=== PATIENT | female | born 1930 | race Two or more races ===

== ENCOUNTER 2018-09-24 11:08 | Inpatient (IN) | payer MEDICARE ==
[~2018-09-24] VITALS: Ht 157.5 cm; Wt 64.4 kg
[2018-09-24 11:18] VITALS: BP 194/65
--- NOTE | 2018-09-24 11:22 | NUR ---
ED Nurse Note: pt brought in to ER by ambulance from [facility] due to high blood pressure which is 194/65mmHg currently and general weakness. pt aao x4 in Latvian and ambulatory with FWW. skin clean and intact. calm and cooperative. no vomiting since she arrived. pt is in gown and on engine monitor.
[2018-09-24] MEDS ORDERED: Isovue-300 100ml vial INJ PRN (11:30)
[2018-09-24 12:05] LABS: BASOPHILS % (AUTO) 0.6 % (0.0-2.0); EOSINOPHILS % (AUTO) 0.2 % (0.0-3.0); HEMATOCRIT 36.2 % (37.0-47.0); HEMOGLOBIN 11.6 G/DL (12.0-16.0); LYMPHOCYTES % (AUTO) 9.8 % (20.0-45.0); MEAN CORPUSCULAR VOLUME 94 FL (80-99); MONOCYTES % (AUTO) 5.4 % (1.0-10.0); PLATELET COUNT 232 K/UL (150-450); RED BLOOD COUNT 3.85 M/UL (4.20-5.40); RED CELL DISTRIBUTION WIDTH 12.9 % (11.6-14.8)
[2018-09-24 12:16] LABS: ANION GAP 10 mmol/L (5-15); BLOOD UREA NITROGEN 18 mg/dL (7-18); CALCIUM 8.9 MG/DL (8.5-10.1); CARBON DIOXIDE 27 MMOL/L (21-32); CHLORIDE 102 MMOL/L (98-107); CREATININE 0.9 MG/DL (0.55-1.30); POTASSIUM 4.3 MMOL/L (3.5-5.1); SODIUM 139 MMOL/L (136-145)
[2018-09-24 12:20] LABS: ALANINE AMINOTRANSFERASE 21 U/L (12-78); ALBUMIN 3.5 G/DL (3.4-5.0); ALBUMIN/GLOBULIN RATIO 0.8 (1.0-2.7); ALKALINE PHOSPHATASE 88 U/L (46-116); ASPARTATE AMINO TRANSFERASE 17 U/L (15-37); BILIRUBIN,TOTAL 0.4 MG/DL (0.2-1.0)
--- NOTE | 2018-09-24 12:55 | NUR ---
ED Nurse Note: PT WENT TO CT WITH TECH
[2018-09-24 12:58] LABS: APPEARANCE,URINE SLIGHTLY CLOUDY; BILIRUBIN, URINE NEGATIVE (NEGATIVE); GLUCOSE, URINE (UA) NEGATIVE (NEGATIVE); KETONES,URINE NEGATIVE (NEGATIVE); LEUKOCYTE ESTERASE ,URINE 3+ (NEGATIVE); NITRITE,URINE NEGATIVE (NEGATIVE); PH,URINE 7 (4.5-8.0); PROTEIN,URINE 2+ (NEGATIVE); UROBILINOGEN,URINE NORMAL MG/DL (0.0-1.0)
[2018-09-24 13:00] LABS: COLOR,URINE YELLOW
[2018-09-24 13:19] VITALS: BP 178/50
--- NOTE | 2018-09-24 13:24 | NUR ---
ED Nurse Note: pt came back from CT scan in stable condition.
--- NOTE | 2018-09-24 13:38 | NUR ---
ED Nurse Note: BP 193/57mmHg. reported to ERMD.
--- NOTE | 2018-09-24 13:39 | NUR ---
ED Nurse Note: pt left unit with 1 botany technician in stable condition.
--- NOTE | 2018-09-24 13:55 | NUR ---
ED Nurse Note: family at bedside. ERMD at bedside informing pt and family about admitting plan.
--- NOTE | 2018-09-24 13:56 | Diagnostic Imaging Report ---
Clinical Indication: Abdominal pain Technique: No oral contrast utilized, per emergency room physician request IV administration nonionic contrast. Venous phase spiral acquisition obtained through the abdomen and pelvis. Multiplanar reconstructions were generated. Total dose length product 819.33 mGycm. CTDIvol(s) 17.73 mGy. Dose reduction achieved using automated exposure control Comparison: none Findings: Lack of enteric contrast administration limits assessment of the GI tract. The appendix is normal. There is colonic diverticulosis. No evidence of diverticulitis. No small bowel distention. No free or loculated intraperitoneal gas or fluid is evident. There is a small sliding-type hiatal hernia. The stomach and distal esophagus are otherwise unremarkable. Duodenum is unremarkable. The gallbladder contains gallstones. The liver is unremarkable. No biliary ductal dilatation. The pancreas is somewhat atrophic and fatty replaced. The spleen, adrenals are unremarkable. There is mild bilateral hydronephrosis. The ureters are somewhat ectatic as well, but no downstream obstructive lesion is demonstrated. The bladder is mildly distended. A subcentimeter angiomyolipoma is seen in the right kidney. Both kidneys demonstrate subcentimeter low-attenuation lesions which are too small to characterize but most likely represent benign simple cysts. There is evidence of some cortical scarring on the left kidney. Calcifications in the left renal sinus are probably arterial. There is an area of haziness of the perinephric fat superomedial to the upper pole of the right kidney The uterus is surgically absent. No pelvic mass or adenopathy. No retroperitoneal or mesenteric mass or adenopathy. The heart is mildly enlarged. The included lung bases demonstrate some atelectatic changes and/or scarring. There is thoracolumbar scoliotic deformity. There are degenerative changes of the lumbosacral spine. Impression: Bilateral mild hydronephrosis. Etiology uncertain given lack of evidence of downstream obstructive pathology. Limited assessment of the GI tract, due to lack of enteric contrast administration. No definite acute abnormality of the GI tract Colonic diverticulosis. No evidence of diverticulitis. 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 Other subcentimeter low-attenuation renal lesions are too small to characterize, most likely represent benign cortical cysts. No further follow-up necessary. Other findings as noted, including degenerative lumbosacral spondylosis, thoracolumbar scoliotic deformity, basilar pulmonary parenchymal atelectasis and/or scarring, evidence of prior hysterectomy, pancreatic atrophy, small sliding-type hiatal hernia The CT scanner at [facility] is accredited by the [employer] and the scans are performed using protocols designed to limit radiation exposure to as low as reasonably achievable to attain images of sufficient resolution adequate for diagnostic evaluation.
--- NOTE | 2018-09-24 14:23 | NUR ---
ED Nurse Note: sandwich and juice provided per pt's request.
[2018-09-24] MEDS ORDERED: NKM (14:24)
--- NOTE | 2018-09-24 14:27 | Emergency Room Report ---
History of Present Illness General Chief Complaint: Generalized Weakness Source: Patient, Family Member, Medical Record Present Illness HPI Patient presents emergency department today complaint acute onset of nausea vomiting associate abdominal discomfort. Patient was a senior daycare where she began to feel ill. And she was brought here by EMS for further evaluations. Patient denies any chest pain. Denies any shortness of breath. No other complaints are noted. Symptoms noted to be severe. Patient states that she had normal bowel movements denies any rectal bleeding. Symptoms however noted to be severe and patient usually does not vomit or have back pain. No other modifying factors. No other associated signs and symptoms. No other complaints were noted. Allergies: Coded Allergies: No Known Allergies (Unverified , 09/24/18) Patient History Past Medical History: DM, HTN, other - Hyperlipidemia PMH Narrative Gastritis, constipation, diverticulosis Social History: Denies: smoking, alcohol use, drug use Now: No Reviewed Nursing Documentation: PMH: Agreed; PSxH: Agreed Nursing Documentation-PMH Past Medical History: No History, Except For Hx Cardiac Problems: Yes - Hyperlipidemia Hx Hypertension: Yes - Lumbar stenosis Hx Diabetes: Yes - Type 2 Hx Gastrointestinal Problems: Yes - Gastritis, chronic constipation, diverticulosis Review of Systems All Other Systems: negative except mentioned in HPI Physical Exam Vital Signs Date Time Temp Pulse Resp B/P (MAP) Pulse Ox O2 Delivery O2 Flow Rate FiO2 09/24/18 11:05 100.0 75 20 202/75 (117) 99 Room Air Sp02 EP Interpretation: reviewed, normal General Appearance: alert, other - Appears weak Head: atraumatic Eyes: bilateral eye normal inspection ENT: normal ENT inspection, hearing grossly normal, normal voice Neck: normal inspection, full range of motion, supple, no bony tend Respiratory: normal inspection, lungs clear, normal breath sounds, no respiratory distress, no retraction, no wheezing Cardiovascular #1: regular rate, rhythm, no edema Gastrointestinal: normal inspection, normal bowel sounds, non tender, soft, no guarding, no hernia Genitourinary: no CVA tenderness Musculoskeletal: normal inspection, back normal, normal range of motion Neurologic: normal inspection, alert, responsive, speech normal Psychiatric: normal inspection, judgement/insight normal, mood/affect normal Medical Decision Making Diagnostic Impression: Primary Impression: Abdominal pain Additional Impressions: Dehydration Hydronephrosis Hematuria Vomiting Hypertension ER Course Patient presents emergency department today complaining abdominal pain. Patient presents to the emergency department today complaining of abdominal pain. Differential considerations include acute pancreatitis, cholecystitis, gastritis, hepatitis, appendicitis just to name a few. Given the severity of the patient's presentation I felt this is a highly complex patient. This patient required extensive workup. Patient's laboratory work-up shows evidence hematuria. Because patient's symptoms CT scan was performed. CT scan shows bilateral hydronephrosis. Given patient abnormality hematuria abdominal pain hydronephrosis and advanced age I feel the patient require admission for the treatment. Case was discussed in detail with Dr. Janell Delacruz. Patient will be admitted for hydration pain management as well as work-up of the hydronephrosis and hematuria. Labs Test 09/24/18 11:30 09/24/18 12:10 White Blood Count 8.0 K/UL (4.8-10.8) Red Blood Count 3.85 M/UL (4.20-5.40) Hemoglobin 11.6 G/DL (12.0-16.0) Hematocrit 36.2 % (37.0-47.0) Mean Corpuscular Volume 94 FL (80-99) Mean Corpuscular Hemoglobin 30.2 PG (27.0-31.0) Mean Corpuscular Hemoglobin Concent 32.1 G/DL (32.0-36.0) Red Cell Distribution Width 12.9 % (11.6-14.8) Platelet Count 232 K/UL (150-450) Mean Platelet Volume 7.6 FL (6.5-10.1) Neutrophils (%) (Auto) 84.0 % (45.0-75.0) Lymphocytes (%) (Auto) 9.8 % (20.0-45.0) Monocytes (%) (Auto) 5.4 % (1.0-10.0) Eosinophils (%) (Auto) 0.2 % (0.0-3.0) Basophils (%) (Auto) 0.6 % (0.0-2.0) Sodium Level 139 MMOL/L (136-145) Potassium Level 4.3 MMOL/L (3.5-5.1) Chloride Level 102 MMOL/L (98-107) Carbon Dioxide Level 27 MMOL/L (21-32) Anion Gap 10 mmol/L (5-15) Blood Urea Nitrogen 18 mg/dL (7-18) Creatinine 0.9 MG/DL (0.55-1.30) Estimat Glomerular Filtration Rate mL/min (>60) Glucose Level 221 MG/DL (74-106) Calcium Level 8.9 MG/DL (8.5-10.1) Total Bilirubin 0.4 MG/DL (0.2-1.0) Aspartate Amino Transf (AST/SGOT) 17 U/L (15-37) Alanine Aminotransferase (ALT/SGPT) 21 U/L (12-78) Alkaline Phosphatase 88 U/L (46-116) Troponin I 0.000 ng/mL (0.000-0.056) Total Protein 8.0 G/DL (6.4-8.2) Albumin 3.5 G/DL (3.4-5.0) Globulin 4.5 g/dL Albumin/Globulin Ratio 0.8 (1.0-2.7) Lipase 70 U/L (73-393) Urine Color Yellow Urine Appearance Slightly cloudy Urine pH 7 (4.5-8.0) Urine Specific Novice 1.015 (1.005-1.035) Urine Protein 2+ (NEGATIVE) Urine Glucose (UA) Negative (NEGATIVE) Urine Ketones Negative (NEGATIVE) Urine Blood 1+ (NEGATIVE) Urine Nitrite Negative (NEGATIVE) Urine Bilirubin Negative (NEGATIVE) Urine Urobilinogen Normal MG/DL (0.0-1.0) Urine Leukocyte Esterase 3+ (NEGATIVE) Urine RBC 20-30 /HPF (0 - 2) Urine WBC 5-10 /HPF (0 - 2) Urine Squamous Epithelial Cells Many /LPF (NONE/OCC) Urine Bacteria Moderate /HPF (NONE) CT/MRI/US Diagnostic Results CT/MRI/US Diagnostic Results : Imaging Test Ordered: CT and pelvis: Positive for hydronephrosis per radiology. Last Vital Signs Date Time Temp Pulse Resp B/P (MAP) Pulse Ox O2 Delivery O2 Flow Rate FiO2 09/24/18 13:19 98.1 69 20 178/50 96 Room Air Status: improved Disposition: ADMITTED INPATIENT Condition: Serious Referrals: NOT CHOSEN IPA/,REFERRING (PCP) Gianfranco Neville MD Sep 24, 2018 14:27
--- NOTE | 2018-09-24 14:33 | NUR ---
ED Nurse Note: report given to JENNY Palmer.
--- NOTE | 2018-09-24 14:56 | NUR ---
NURSE NOTES: Pt BP elevated on arrival to the floor; 163/94. RN left message for Dr. Ballesteros re BP and for admit orders. Awaiting call back.
--- NOTE | 2018-09-24 15:34 | NUR ---
NURSE NOTES: RN received admit orders from Dr. Ballesteros and advised to contact Dr. Myers re elevated BP. RN left message for Dr. Myers. Awaiting call back. Charge nurse aware.
[2018-09-24 16:00] VITALS: BP 162/79
[2018-09-24 16:30] VITALS: BP 155/61
[2018-09-24] MEDS ORDERED: NovoLOG Insulin Flexpen SUBQ SCH (16:30)
--- NOTE | 2018-09-24 16:30 | NUR ---
NURSE NOTES: Per Dr. Myers's order, pt transferred to tele. Pt BP elevated, but otherwise in stable condition. No acute distress or SOB. RN gave report to JENNY Brock. Informed television parts tester that pt's family would call with home med list and to f/u with Dr. Ballesteros for home med orders. Pt's walker, sunglasses and cell phone accounted for during transport; all other belongings sent home with family.
--- NOTE | 2018-09-24 16:32 | NUR ---
NURSE NOTES: Received patient and report from Scarlett ALVARADO. from 4E into rm 220-1. Patient is alert and oriented x4. Skin is intact. All belongings accounted for and signed with the transferring nurse. Patient is NPO per Dr. Badillo. Spoke with Lorelei - daughter and dictated the list of patient's medications over the phone. All home medications input. Blood pressure checked 155/61. Patient is in stable condition. Will continue with the plan of care.
[2018-09-24] MEDS: HydrALAZINE 25mg tab ORAL SCH (17:11)
--- NOTE | 2018-09-24 17:32 | NUR ---
CASE MANAGEMENT:INITIAL REVIEW 88 YO F BIBA FROM [facility] CC: GEN WEAKNESS PMHx: DM. HTN. HLD. SI:ABD PAIN T 100 HR 75 RR 20 B/P 202/75 SATS 99% ON RA GLU 221 LIPASE 70 IS: ZOFRAN IV X1 NS BOLUS X1 CT ABD Impression: Bilateral mild hydronephrosis PATIENT ADMITTED TO TELE 09/24/2018 @ 1304 DCP: PATIENT TO BE DISCHARGED TO HOME ONCE MEDICALLY CLEARED.
[2018-09-24] MEDS ORDERED: HydrALAZINE 25mg tab ORAL SCH (18:00)
[2018-09-24] MEDS ORDERED: METFORMIN HCL1000 M1 ORAL (18:01)
[2018-09-24] MEDS ORDERED: GLIMEPIRIDE1 MG ORAL (18:03)
[2018-09-24] MEDS ORDERED: GABAPENTIN300 MG ORAL (18:04)
[2018-09-24] MEDS ORDERED: AMLODIPINE BESY10 MG ORAL (18:05)
[2018-09-24] MEDS ORDERED: CARVEDILOL25 MG ORAL (18:06)
[2018-09-24] MEDS ORDERED: FEROSUL325 M1 PO (18:07)
[2018-09-24] MEDS ORDERED: TRAVATAN Z5 ML OP (18:09)
[2018-09-24] MEDS ORDERED: LOSARTAN POTASS50 MG ORAL (18:14)
[2018-09-24] MEDS ORDERED: MINOXIDIL2.5 MG PO (18:14)
[2018-09-24] MEDS ORDERED: HYDROCHLOROTH12.5 M2 ORAL (18:14)
[2018-09-24] MEDS ORDERED: OMEPRAZOLE20 M2 ORAL (18:14)
--- NOTE | 2018-09-24 19:33 | NUR ---
HAND-OFF: Report given to Gina ALVARADO.Patient is in stable condition.
[2018-09-24 20:00] VITALS: BP 166/69
[2018-09-24] MEDS: NovoLOG Insulin Flexpen SUBQ SCH (21:00)
[2018-09-25] VITALS: BP 112/66
[2018-09-25 04:00] VITALS: BP 103/90
[2018-09-25] MEDS: HydrALAZINE 25mg tab ORAL SCH ×2 (05:51)
[2018-09-25] MEDS: NovoLOG Insulin Flexpen SUBQ SCH ×4 (06:25→23:01)
--- NOTE | 2018-09-25 07:22 | NUR ---
NURSE NOTES: Received patient from Gina RN in bed resting. Patient is AOx4. Denies any pain. No acute distress noted, fall precaution in place. Bed is in lowest position and brakes engaged for safety. Bedside rail up x2, call light is within reach. Will continue with the plan of care.
[2018-09-25 08:00] VITALS: BP 121/67
[2018-09-25 08:49] LABS: BASOPHILS % (AUTO) 0.6 % (0.0-2.0); EOSINOPHILS % (AUTO) 1.8 % (0.0-3.0); HEMATOCRIT 34.3 % (37.0-47.0); HEMOGLOBIN 11.1 G/DL (12.0-16.0); LYMPHOCYTES % (AUTO) 18.4 % (20.0-45.0); MEAN CORPUSCULAR VOLUME 93 FL (80-99); MONOCYTES % (AUTO) 6.7 % (1.0-10.0); NEUTROPHILS % (AUTO) 72.4 % (45.0-75.0); PLATELET COUNT 198 K/UL (150-450); RED BLOOD COUNT 3.69 M/UL (4.20-5.40); RED CELL DISTRIBUTION WIDTH 12.4 % (11.6-14.8); WHITE BLOOD COUNT 9.5 K/UL (4.8-10.8)
[2018-09-25 09:37] LABS: % IRON SATURATION 15 % (15-50); IRON 39 ug/dL (50-175); TOTAL IRON BINDING CAPACITY 256 ug/dL (250-450)
[2018-09-25 09:38] LABS: ALANINE AMINOTRANSFERASE 18 U/L (12-78); ALBUMIN 3.3 G/DL (3.4-5.0); ALBUMIN/GLOBULIN RATIO 0.9 (1.0-2.7); ALKALINE PHOSPHATASE 77 U/L (46-116); ANION GAP 7 mmol/L (5-15); ASPARTATE AMINO TRANSFERASE 17 U/L (15-37); BILIRUBIN,TOTAL 0.5 MG/DL (0.2-1.0); BLOOD UREA NITROGEN 14 mg/dL (7-18); CALCIUM 8.7 MG/DL (8.5-10.1); CARBON DIOXIDE 29 MMOL/L (21-32); CHLORIDE 104 MMOL/L (98-107); CHOLESTEROL 204 MG/DL (< 200); CREATININE 0.9 MG/DL (0.55-1.30); FERRITIN 74 NG/ML (8-388); HDL CHOLESTEROL 46 MG/DL (40-60); POTASSIUM 3.9 MMOL/L (3.5-5.1); SODIUM 139 MMOL/L (136-145); TRIGLYCERIDES 59 MG/DL (30-150)
[2018-09-25 10:11] LABS: GAMMA GLUTAMYL TRANSPEPTIDASE 39 U/L (5-85); PHOSPHORUS 3.6 MG/DL (2.5-4.9)
[2018-09-25] MEDS ORDERED: Isovue-300 100ml vial INJ PRN (11:30)
[2018-09-25] MEDS: HydrALAZINE 10mg Tab ORAL SCH ×3 (11:57→23:07)
[2018-09-25 12:00] VITALS: BP 132/60
--- NOTE | 2018-09-25 13:43 | Consultation ---
Consult Note Consult Note asked to alexia for BP management ER: Patient presents emergency department today complaint acute onset of nausea vomiting associate abdominal discomfort. Patient was a senior daycare where she began to feel ill. And she was brought here by EMS for further evaluations. Patient denies any chest pain. Denies any shortness of breath. No other complaints are noted. Symptoms noted to be severe. Patient states that she had normal bowel movements denies any rectal bleeding. Symptoms however noted to be severe and patient usually does not vomit or have back pain. No other modifying factors. No other associated signs and symptoms. No other complaints were noted. No Known Allergies (Unverified , 09/24/18) Past Medical History: DM, HTN, other - Hyperlipidemia Past Medical History: No History, Except For Hx Cardiac Problems: Yes - Hyperlipidemia Hx Hypertension: Yes - Lumbar stenosis Hx Diabetes: Yes - Type 2 Hx Gastrointestinal Problems: Yes - Gastritis, chronic constipation, diverticulosis examined data reviewed . Assessment/Plan HTN OOC DM, elevated HgbA1c Abdominal pain and Vomiting: Now improved UTI , Hematuria Dehydration Hydronephrosis BP meds with Parameters Antibiotics for uti NPO pending GI Conor Davila MD Sep 25, 2018 13:43
--- NOTE | 2018-09-25 14:44 | NUR ---
CASE MANAGEMENT:REVIEW 09/25/18 SI: DEHYDRATION. HYDRONEPHROSIS 98.2 66 18 132/60 95% ON RA GLUCOSE+150 A1C+7.2 IS: NORVASC PO BID IV ROCEPHIN Q24 IVF@50/HR HYDRALAZINE PO Q6HRS IV PEPCID Q12 : MED/SURG STATUS 3 EAST DCP: FROM HOME
[2018-09-25] MEDS ORDERED: cefTRIAXone 1 GM in D5W 55 ML IVPB SCH (15:00)
[2018-09-25 16:00] VITALS: BP 134/77
--- NOTE | 2018-09-25 16:26 | Consultation ---
History of Present Illness General Chief Complaint: Generalized Weakness Present Illness Allergies: Coded Allergies: No Known Allergies (Unverified , 09/24/18) Medication History Scheduled Amlodipine Besylate* (Amlodipine Besylate*), 10 MG ORAL DAILY, (Reported) Carvedilol* (Carvedilol*), 25 MG ORAL BID, (Reported) Ferrous Sulfate (Ferosul), 325 MG PO DAILY, (Reported) Gabapentin* (Gabapentin*), 300 MG ORAL BID, (Reported) Glimepiride* (Glimepiride*), 1 MG ORAL DAILY, (Reported) Hydrochlorothiazide* (Hydrochlorothiazide*), 12.5 MG ORAL DAILY, (Reported) Losartan Potassium* (Losartan Potassium*), 100 MG ORAL DAILY, (Reported) Metformin Hcl* (Metformin Hcl*), 1,000 MG ORAL BID, (Reported) Minoxidil* (Loniten*), 5 MG PO BID, (Reported) Omeprazole (Omeprazole), 20 MG ORAL DAILY, (Reported) Miscellaneous Medications Travoprost (Travatan Z), Unknown Dose OP, (Reported) Discontinued Medications No Known Medications* (NKM - No Known Medications*), 0 ., (Reported) Discontinued Reason: Therapy completed Patient History Healthcare decision maker Resuscitation status Full Code Advanced Directive on File Physical Exam Last 24 Hour Vital Signs Date Time Temp Pulse Resp B/P (MAP) Pulse Ox O2 Delivery O2 Flow Rate FiO2 09/25/18 12:00 98.2 66 18 132/60 (84) 95 09/25/18 12:00 66 09/25/18 11:57 132/50 09/25/18 09:04 68 121/67 09/25/18 09:00 Room Air 09/25/18 08:00 97.0 64 18 121/67 (85) 97 09/25/18 08:00 64 09/25/18 05:51 103/90 09/25/18 04:00 98.0 90 19 103/90 (94) 96 09/25/18 04:00 63 09/25/18 00:00 61 09/25/18 00:00 112/66 09/25/18 00:00 98.0 71 18 112/66 (81) 96 09/24/18 21:00 Room Air 09/24/18 20:00 97.9 71 18 166/69 (101) 96 09/24/18 20:00 61 09/24/18 17:14 60 155/61 09/24/18 17:11 155/61 09/24/18 16:30 61 09/24/18 16:30 97.3 60 20 155/61 (92) 96 09/24/18 16:21 Room Air Intake and Output 09/24/18 09/25/18 19:00 07:00 Intake Total 550 ml Balance 550 ml Intake Oral 50 ml IV Total 500 ml Laboratory Tests Test 09/25/18 06:15 White Blood Count 9.5 K/UL (4.8-10.8) Red Blood Count 3.69 M/UL (4.20-5.40) L Hemoglobin 11.1 G/DL (12.0-16.0) L Hematocrit 34.3 % (37.0-47.0) L Mean Corpuscular Volume 93 FL (80-99) Mean Corpuscular Hemoglobin 30.1 PG (27.0-31.0) Mean Corpuscular Hemoglobin Concent 32.5 G/DL (32.0-36.0) Red Cell Distribution Width 12.4 % (11.6-14.8) Platelet Count 198 K/UL (150-450) Mean Platelet Volume 7.3 FL (6.5-10.1) Neutrophils (%) (Auto) 72.4 % (45.0-75.0) Lymphocytes (%) (Auto) 18.4 % (20.0-45.0) L Monocytes (%) (Auto) 6.7 % (1.0-10.0) Eosinophils (%) (Auto) 1.8 % (0.0-3.0) Basophils (%) (Auto) 0.6 % (0.0-2.0) Sodium Level 139 MMOL/L (136-145) Potassium Level 3.9 MMOL/L (3.5-5.1) Chloride Level 104 MMOL/L (98-107) Carbon Dioxide Level 29 MMOL/L (21-32) Anion Gap 7 mmol/L (5-15) Blood Urea Nitrogen 14 mg/dL (7-18) Creatinine 0.9 MG/DL (0.55-1.30) Estimat Glomerular Filtration Rate mL/min (>60) Glucose Level 150 MG/DL (74-106) H Hemoglobin A1c 7.2 % (4.3-6.0) H Uric Acid 5.1 MG/DL (2.6-7.2) Calcium Level 8.7 MG/DL (8.5-10.1) Phosphorus Level 3.6 MG/DL (2.5-4.9) Magnesium Level 2.3 MG/DL (1.8-2.4) Iron Level 39 ug/dL (50-175) L Total Iron Binding Capacity 256 ug/dL (250-450) Percent Iron Saturation 15 % (15-50) Unsaturated Iron Binding 217 ug/dL (112-346) Ferritin 74 NG/ML (8-388) Total Bilirubin 0.5 MG/DL (0.2-1.0) Gamma Glutamyl Transpeptidase 39 U/L (5-85) Aspartate Amino Transf (AST/SGOT) 17 U/L (15-37) Alanine Aminotransferase (ALT/SGPT) 18 U/L (12-78) Alkaline Phosphatase 77 U/L (46-116) Troponin I 0.007 ng/mL (0.000-0.056) Pro-B-Type Natriuretic Peptide 587 pg/mL (0-125) H Total Protein 7.0 G/DL (6.4-8.2) Albumin 3.3 G/DL (3.4-5.0) L Globulin 3.7 g/dL Albumin/Globulin Ratio 0.9 (1.0-2.7) L Triglycerides Level 59 MG/DL (30-150) Cholesterol Level 204 MG/DL (< 200) H LDL Cholesterol 148 mg/dL (<100) H HDL Cholesterol 46 MG/DL (40-60) Cholesterol/HDL Ratio 4.4 (3.3-4.4) Lipase 95 U/L (73-393) Vitamin B12 Level 450 PG/ML (193-986) Folate 30.1 NG/ML (8.6-58.9) Thyroid Stimulating Hormone (TSH) 3.181 uiU/mL (0.358-3.740) Height (Feet): 5 Height (Inches): 2.00 Weight (Pounds): 142 Medications Current Medications Medications (Trade) Dose Ordered Sig/Michael Route PRN Reason Start Time Stop Time Status Last Admin Dose Admin Amlodipine Besylate (Norvasc) 5 mg BID ORAL 09/26/18 09:00 10/25/18 08:59 Ceftriaxone Sodium 1 gm/ Dextrose 55 ml @ 110 mls/hr Q24H IVPB 09/25/18 15:00 10/02/18 14:59 09/25/18 15:07 Clonidine HCl (Catapres Tab) 0.1 mg Q4H PRN ORAL bp over 160 syst 09/24/18 16:41 10/24/18 16:40 Dextrose (Dextrose 50%) 25 ml Q30M PRN IV Hypoglycemia 09/24/18 17:00 10/24/18 15:29 Dextrose (Dextrose 50%) 50 ml Q30M PRN IV Hypoglycemia 09/24/18 17:00 10/24/18 15:29 Famotidine (Pepcid I.v.) 20 mg Q12HR IVP 09/24/18 21:00 10/24/18 20:59 09/25/18 09:04 Hydralazine HCl (Apresoline) 10 mg Q6HR ORAL 09/25/18 12:00 10/24/18 17:59 09/25/18 11:57 Insulin Aspart (NovoLOG) BEFORE MEALS AND HS SUBQ 09/24/18 21:00 10/24/18 16:29 Ondansetron HCl (Zofran) 4 mg Q6H PRN IVP Nausea & Vomiting 09/24/18 16:41 10/24/18 16:40 Sodium Chloride 1,000 ml @ 50 mls/hr Q20H IV 09/25/18 13:50 10/25/18 13:49 09/25/18 15:08 Assessment/Plan Assessment/Plan: Hematology Consultation REQ : Janell Ballesteros DOS: 09/25/18 RFC: Anemia evaluation, hematuria Chief Complaint: Generalized Weakness HPI 88y old female presents emergency department today complaint acute onset of nausea vomiting associate abdominal discomfort. Was asked by Dr. Janell Redding to see patient for anemia, patient was a senior daycare where she began to feel ill. And she was brought here by EMS for further evaluations. Patient denies any chest pain. Denies any shortness of breath. No other complaints are noted. Symptoms noted to be severe. Patient states that she had normal bowel movements denies any rectal bleeding. Symptoms however noted to be severe and patient usually does not vomit or have back pain. No other modifying factors. No other associated signs and symptoms. No other complaints were noted. Noted to have anemia downtrending 11.6-->11.1 Coded Allergies: No Known Allergies (Unverified , 09/24/18) Patient History Past Medical History: DM, HTN, other - Hyperlipidemia PMH Narrative Gastritis, constipation, diverticulosis Social History: Denies: smoking, alcohol use, drug use Now: No Reviewed Nursing Documentation: PMH: Agreed; PSxH: Agreed Nursing Documentation-PMH Past Medical History: No History, Except For Hx Cardiac Problems: Yes - Hyperlipidemia Hx Hypertension: Yes - Lumbar stenosis Hx Diabetes: Yes - Type 2 Hx Gastrointestinal Problems: Yes - Gastritis, chronic constipation, diverticulosis General: Denies fatigue, fever, chills, weight loss; + weight gain as above HENT: Denies oral sores, neck masses, nasal d/c, hearing problems Vison: Denies change in vision, eye pain, redness, discharge Cardiac: As above Pulmonary: As above GI: Denies heart burn, swallowing difficulty, abdominal pain, diarrhea, constipation : As per HPI Neuro: Denies seizure, weakness, numbness Endo: Denies heat/cold intolerance, weight changes, polyuria, polydipsia Heme/Onc: Denies unusual bleeding, bruising, clotting MSK: Denies join pain, swelling, muscle aches Mental Health: Denies anxiety, depression, mood changes Vital Signs Date Time Temp Pulse Resp B/P (MAP) Pulse Ox O2 Delivery O2 Flow Rate FiO2 09/24/18 11:05 100.0 75 20 202/75 (117) 99 Room Air PE: Vitals: reviewed General Appearance: NAD HEENT: normocephalic, atraumatic Neck: non-tender, normal alignment Respiratory/Chest: normal breath sounds bilaterally Cardiovascular/Chest: normal peripheral pulses, normal rate Abdomen: normal bowel sounds, soft, nontender Extremities: normal range of motion Labs: reviewed Imaging: noted Assessment and Recs: # Anemia of iron deficiency, decreased ferritin, rule out gi bleed (COULD BE RELATED TO HEMATURIA) --> Anemia workup has been ordered, rule out gi bleed --> No evidence of hemolysis is noted, peripheral smear has been reviewed. --> Hgb goal >7. Transfuse prn. --> Medications have been reviewed --> low threshold for gi evaluation in case has occult + --> doesn't need a bone marrow biopsy --> ferrous sulfate has been started # Right renal angiomyolipoma. Other subcentimeter low-attenuation renal lesions are too small to characterize, most likely represent benign cortical cysts. --> appears to be non-malignant --> hold off on further imaging, doesn't require biopsy # Abdominal pain --> potentially due to hydronephrosis --> gu eval prn basis # Dehydration - ivf have been started # Hydronephrosis --> per gu # Hematuria # Nausea/Vomiting --> per gi # Hypertension --> sbp goal <140 The timing of this note does not necessarily reflect the time of the patient was seen. GREATLY APPRECIATE CONSULTATION. Casimiro Somers MD Sep 25, 2018 16:26
--- NOTE | 2018-09-25 18:15 | Consultation ---
DATE OF CONSULTATION: 09/25/2018 UROLOGY CONSULTATION PHYSICIAN: Michele Tidwell M.D. ATTENDING/CONSULTING PHYSICIAN: Janell Ballesteros M.D. CHIEF COMPLAINT/HISTORY OF PRESENT ILLNESS: I was asked by Dr. Ballesteros to evaluate this 88-year-old female regarding history of mild bilateral hydronephrosis noted on CT scan. Briefly, the patient presented to the hospital with a history of nausea and vomiting associated with some abdominal discomfort. She was brought by EMS for evaluation of the same. A CT scan of the abdomen and pelvis to evaluate the same revealed minimal bilateral hydronephrosis. As such, I was asked to evaluate the patient. PAST MEDICAL HISTORY: 1. Diabetes. 2. Hypertension. 3. Hyperlipidemia. 4. Lumbar stenosis. 5. Gastritis. 6. Constipation. 7. Diverticulosis. PAST SURGICAL HISTORY: None. MEDICATIONS: Please see the chart for current medications and administration details. ALLERGIES: No known drug allergies. SOCIAL HISTORY: Unremarkable for tobacco, alcohol, or drug use. FAMILY HISTORY: Noncontributory. REVIEW OF SYSTEMS: A 14-system review of systems is essentially unremarkable outside of what is described above. PHYSICAL EXAMINATION: GENERAL: The patient is an elderly female, resting comfortably. Awake, alert, and oriented x4, in no obvious distress. HEENT: NC/AT. EOMI. Oropharynx clear. NECK: Supple. CHEST: Within normal limits. ABDOMEN: Soft, nontender, and nondistended. EXTREMITIES: Warm and well perfused. No cyanosis, clubbing, or edema. BACK: No CVA tenderness to percussion appreciable. NEUROLOGIC: Grossly nonfocal. GENITOURINARY: Deferred. LABORATORY DATA: White blood cell count 9.5, hematocrit 34.3, and platelets 198,000. Sodium 139, potassium 3.9, chloride 104, bicarbonate 29, BUN 14, creatinine 0.9, and glucose 150. Calcium 8.7, hemoglobin A1c 7.2. LFTs within normal limits. Troponin negative. Urinalysis, specific gravity 1.015 and pH 7.0. Dip test notable for 2+ protein, 1+ occult blood, and 3+ leukocyte esterase. Microanalysis with 20 to 30 red and 5 to 10 white blood cells per high-power field and moderate bacteria seen. Urine culture with 40 to 50,000 colonies of gram-negative bacillus. Identification and susceptibility pending. DIAGNOSTIC IMAGING: CT scan of the abdomen and pelvis reveals mild bilateral hydronephrosis. There is no downstream obstructive lesion demonstrated. The bladder is mildly distended. 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 There are bilateral simple renal cysts. There is diverticulosis without diverticulitis. There is cholelithiasis. ASSESSMENT AND PLAN: In summary, the patient is an 88-year-old female with history of abdominal pain associated with nausea and vomiting. She presented to the hospital for evaluation of the same. A CT scan of the abdomen and pelvis revealed mild bilateral hydronephrosis with no evidence of an obstructing stone, mass, or other issue. Further workup also revealed evidence of urinary tract infection for which the patient has been started on ceftriaxone. Physical exam reveals no significant abdominal discomfort or tenderness. This patient's abdominal pain and nausea may have been secondary to urinary tract infection. This has been treated with antibiotics. The mild/minimal bilateral hydronephrosis demonstrated on CT scan is of no clinical consequence. There is no evidence of any obstruction, stone, or other concern with the same and her creatinine is normal. I would merely place her on surveillance from this standpoint. The patient's infection should be treated with 5 to 7 days of antibiotics. She is otherwise stable. She is cleared from a standpoint to go home. Thank you for allowing me to participate in the care of this nice lady. Please do not hesitate to contact me for any questions that you may further have regarding her care. I will see her with you as needed. Michele Tidwell M.D. DR: RONEY JOB#: [id number] CC:
--- NOTE | 2018-09-25 19:13 | NUR ---
HAND-OFF: Report given to JENNY Hernandez. Patient is in stable condition.
--- NOTE | 2018-09-25 19:15 | NUR ---
NURSE NOTES: Received pt. from JENNY Brock. Patient sitting in bed awake showing no sign of acute distress. Respiration even and non labored on room air. No SOB noted. AOx4. IV line patent and intact running 0.45%NS @ 75ml/hr on Left AC 18g. VS stable. bed in lowest position, side rails up x2. Wheels locked and alarm on . Call light within reach. All needs attended and met. Will continue plan of care.
[2018-09-25 20:00] VITALS: BP 142/66
--- NOTE | 2018-09-25 22:00 | Consultation ---
DATE OF CONSULTATION: 09/25/2018 ENDOCRINOLOGY CONSULTATION CONSULTING PHYSICIAN: Nilson Bowen M.D. REFERRING PHYSICIAN: Janell Ballesteros M.D. REASON FOR CONSULTATION: Diabetes management. HISTORY OF PRESENT ILLNESS: The patient is an 88-year-old female with past medical history of diabetes, on metformin and glimepiride as an outpatient who presented to the hospital yesterday with a chief complaint of generalized weakness. The patient has history of acute onset of nausea, vomiting associated with abdominal discomfort and it started at the adult daycare. Denies any rectal bleeding. Admitted to the hospital for observation and treatment. PAST MEDICAL HISTORY: 1. Diabetes. 2. Hypertension. 3. Hyperlipidemia. 4. Gastritis. 5. Diverticulosis. 6. Lumbar stenosis. PAST SURGICAL HISTORY: None. The patient was noted to have a mild bilateral hydronephrosis on CT scan without evidence of total obstruction of stone. Also noted to have urinary tract infection, so she has been started on ceftriaxone. REVIEW OF SYSTEMS: A 12-point review of systems performed and pertinent positives and negatives as noted in the history of present illness. MEDICATIONS: Reviewed and reconciled. ALLERGIES TO MEDICATIONS: None. FAMILY HISTORY: Noncontributory. LABORATORY VALUES: Sodium 139, potassium 3.9, chloride 104, bicarb 29, BUN 14, creatinine 0.9, glucose of 150. A1c of 7.2. BNP of 587. Lipase 70. PHYSICAL EXAMINATION: GENERAL: She is awake and alert. VITAL SIGNS: Blood pressure is 134/77, pulse 67, temperature of 97.8, respiratory rate 18. HEENT: Pupils are equal and reactive to light and accommodation. Sclerae anicteric. NECK: No JVD. No thyromegaly. No bruit. LUNGS: Clear. HEART: Regular rate and rhythm. ABDOMEN: Positive bowel sounds. EXTREMITIES: No clubbing, cyanosis, or edema. DIAGNOSES: 1. Urinary tract infection. 2. Mild hydronephrosis, evaluated by urologist without any significant obstruction. 3. Diabetes, out of control. 4. Hypertension. PLAN: 1. Resume metformin tomorrow 500 mg t.i.d. 2. I will hold on glimepiride. 3. NovoLog sliding scale before meals and at bedtime. 4. Diabetic diet. 5. Further adjustment according to blood glucose values. Thank you, Dr. Ballesteros, for the courtesy of this consultation. Nilson Bowen M.D. DR: HARI JOB#: [id number] CC: MURTAZA
[2018-09-26] VITALS: BP 137/89
[2018-09-26 04:00] VITALS: BP 167/86
--- NOTE | 2018-09-26 05:45 | History and Physical Report ---
DATE OF ADMISSION: 09/24/2018 HISTORY OF PRESENT ILLNESS: The patient is admitted with abdominal pain. Blood pressure was also elevated. The patient also is complaining of vomiting as well x1 day. The patient denies rectal bleeding. Denies hematemesis. The patient also is complaining of abdominal pain. The patient is also diabetic. The patient denies shortness of breath. Denies cough. Denies fever or chills. Denies orthopnea. PAST MEDICAL HISTORY: Significant for hypertension, iron deficiency anemia, NIDDM, neuropathy, GERD, glaucoma, and hyperlipidemia. PAST SURGICAL HISTORY: None. ALLERGIES: No known allergies. MEDICATIONS: Coreg, iron, gabapentin, glimepiride, hydrochlorothiazide, losartan, metformin, , and Travatan eye drops. FAMILY HISTORY: diabetes. SOCIAL HISTORY: Denies smoking, alcohol, or illicit drugs. REVIEW OF SYSTEMS: HEENT: Denies headaches. Denies shortness of breath. Denies cough. CARDIOVASCULAR: Denies chest pain or orthopnea. GASTROINTESTINAL: Reports vomiting and abdominal pain x1 day. Denies diarrhea. Denies constipation. EXTREMITIES: Denies pain. CENTRAL NERVOUS SYSTEM: Denies change in vision or speech pattern. PHYSICAL EXAMINATION: VITAL SIGNS: Temperature , pulse 66, and blood pressure 134/60. HEENT: PERRLA. NECK: Supple. CHEST: Clear to auscultation. CARDIOVASCULAR: Regular rate and rhythm. GASTROINTESTINAL: Abdomen is soft. No organomegaly. Positive bowel sounds. No rebound. EXTREMITIES: No edema. Moves all four extremities. NEUROLOGIC: Sensory intact to light touch. Reflexes on both sides. Moves all four extremities. LABORATORY DATA: WBC of 8, hemoglobin 9.6, and platelets of 232,000. Sodium 139, potassium 4.3, BUN 18, creatinine 0.9, and glucose of 221. ASSESSMENT AND PLAN: 1. Abdominal pain. 2. Vomiting. 3. Hypertension. 4. NIDDM, elevated blood sugar. I have asked Dr. Bowen, Dr. Badillo, Dr. Michele Tidwell, and Dr. Fernandez to see the patient for abnormal imaging scan as well as for the management of abdominal pain, hypertension, and NIDDM. Janell Ballesteros M.D. DR: ABDOULAYE JOB#: [id number] CC:
[2018-09-26] MEDS: HydrALAZINE 10mg Tab ORAL SCH ×4 (06:00→21:20)
[2018-09-26] MEDS: metFORMIN 500mg tab ORAL SCH ×3 (06:04→17:02)
[2018-09-26] MEDS: NovoLOG Insulin Flexpen SUBQ SCH ×4 (06:05→21:24)
--- NOTE | 2018-09-26 06:45 | General Progress Note ---
Assessment/Plan Problem List: (1) Diabetes ICD Codes: E11.9 - Type 2 diabetes mellitus without complications SNOMED: 75374943 (2) Abdominal pain ICD Codes: R10.9 - Unspecified abdominal pain SNOMED: 92775368 (3) Hypertension ICD Codes: I10 - Essential (primary) hypertension SNOMED: 27228189 Assessment/Plan: Metformin 500 mg tid to be started today continue NISS ac / hs Subjective Allergies: Coded Allergies: No Known Allergies (Unverified , 09/24/18) All Systems: reviewed and negative except above Subjective Item Value Date Time Bedside Blood Glucose 140 mg/dl H 09/26/18 0630 Bedside Blood Glucose 150 mg/dl H 09/25/18 2301 Bedside Blood Glucose 150 mg/dl H 09/25/18 2100 Bedside Blood Glucose 118 mg/dl 09/25/18 1711 Bedside Blood Glucose 138 mg/dl H 09/25/18 1130 Bedside Blood Glucose 154 mg/dl H 09/25/18 0625 events noted interval noted reviewed Objective Last 24 Hour Vital Signs Date Time Temp Pulse Resp B/P (MAP) Pulse Ox O2 Delivery O2 Flow Rate FiO2 09/26/18 06:00 133/49 09/26/18 04:14 167/86 09/26/18 04:00 98.2 71 18 167/86 (113) 96 09/26/18 04:00 77 09/26/18 00:00 98.0 89 18 137/89 (105) 95 09/26/18 00:00 78 09/25/18 23:07 142/66 09/25/18 21:00 Room Air 09/25/18 20:00 98.4 74 19 142/66 (91) 95 09/25/18 20:00 70 09/25/18 17:10 134/77 09/25/18 16:00 97.8 67 18 134/77 (96) 94 09/25/18 16:00 68 09/25/18 12:00 98.2 66 18 132/60 (84) 95 09/25/18 12:00 66 09/25/18 11:57 132/50 09/25/18 09:04 68 121/67 09/25/18 09:00 Room Air 09/25/18 08:00 97.0 64 18 121/67 (85) 97 09/25/18 08:00 64 Intake and Output 09/25/18 09/26/18 19:00 07:00 Intake Total 693.333 ml Balance 693.333 ml IV Total 693.333 ml # Voids 2 2 Height (Feet): 5 Height (Inches): 2.00 Weight (Pounds): 142 General Appearance: no apparent distress Neck: normal alignment Cardiovascular: normal rate Respiratory/Chest: lungs clear Abdomen: normal bowel sounds Edema: no edema noted Arm (L), no edema noted Arm (R), no edema noted Leg (L), no edema noted Leg (R), no edema noted Pedal (L), no edema noted Pedal (R), no edema noted Generalized Objective Current Medications Medications (Trade) Dose Ordered Sig/Michael Route PRN Reason Start Time Stop Time Status Last Admin Dose Admin Amlodipine Besylate (Norvasc) 5 mg BID ORAL 09/26/18 09:00 10/25/18 08:59 Ceftriaxone Sodium 1 gm/ Dextrose 55 ml @ 110 mls/hr Q24H IVPB 09/25/18 15:00 10/02/18 14:59 09/25/18 15:07 Clonidine HCl (Catapres Tab) 0.1 mg Q4H PRN ORAL bp over 160 syst 09/24/18 16:41 10/24/18 16:40 09/26/18 04:14 Dextrose (Dextrose 50%) 25 ml Q30M PRN IV Hypoglycemia 09/24/18 17:00 10/24/18 15:29 Dextrose (Dextrose 50%) 50 ml Q30M PRN IV Hypoglycemia 09/24/18 17:00 10/24/18 15:29 Famotidine (Pepcid I.v.) 20 mg Q12HR IVP 09/24/18 21:00 10/24/18 20:59 09/25/18 21:29 Ferrous Sulfate (Feosol) 325 mg THREE TIMES A DAY ORAL 09/25/18 18:00 10/25/18 17:59 09/25/18 17:14 Hydralazine HCl (Apresoline) 10 mg Q6HR ORAL 09/25/18 12:00 10/24/18 17:59 09/25/18 23:07 Insulin Aspart (NovoLOG) BEFORE MEALS AND HS SUBQ 09/24/18 21:00 10/24/18 16:29 09/26/18 06:05 Metformin HCl (Glucophage) 500 mg TIAC ORAL 09/26/18 06:30 10/26/18 06:29 09/26/18 06:04 Ondansetron HCl (Zofran) 4 mg Q6H PRN IVP Nausea & Vomiting 09/24/18 16:41 10/24/18 16:40 Sodium Chloride 1,000 ml @ 50 mls/hr Q20H IV 09/25/18 13:50 10/25/18 13:49 09/25/18 15:08 Nilson Bowen MD Sep 26, 2018 06:45
--- NOTE | 2018-09-26 07:29 | NUR ---
HAND-OFF: Report given to JENNY Albert.
--- NOTE | 2018-09-26 07:30 | NUR ---
NURSE NOTES: Received pt sitting in bed awake showing no s/s of pain or no sign of acute distress. Respiration even and non labored on room air. No SOB noted. AOx4. IV line patent and intact running 0.45%NS @ 75ml/hr as ordered. VS stable. bed in lowest position, side rails up x3. Wheels locked and alarm on . Call light and frequent used objects are within reach. Will continue plan of care.
[2018-09-26 08:35] VITALS: BP 132/70
--- NOTE | 2018-09-26 09:50 | Hematology/Onc Progress Note ---
Assessment/Plan Assessment/Plan Assessment and Recs: # Anemia of iron deficiency, decreased ferritin, rule out gi bleed (COULD BE RELATED TO HEMATURIA) --> Anemia workup has been ordered, rule out gi bleed --> No evidence of hemolysis is noted, peripheral smear has been reviewed. --> Hgb goal >7. Transfuse prn. --> Medications have been reviewed --> low threshold for gi evaluation in case has occult + --> doesn't need a bone marrow biopsy --> ferrous sulfate has been started per pcp --> gu eval as needed --> trend hgb 11.6-->11.1 # Right renal angiomyolipoma. Other subcentimeter low-attenuation renal lesions are too small to characterize, most likely represent benign cortical cysts. --> appears to be non-malignant --> hold off on further imaging, doesn't require biopsy # Abdominal pain --> potentially due to hydronephrosis --> gu eval prn basis # Dehydration - ivf have been started --> per renal recs # Hydronephrosis --> per gu # Hematuria # Nausea/Vomiting --> per gi # Hypertension --> sbp goal <140 The timing of this note does not necessarily reflect the time of the patient was seen. GREATLY APPRECIATE CONSULTATION. Subjective Constitutional: Denies: no symptoms, chills, fever, malaise, weakness, other HEENT: Denies: no symptoms, eye pain, blurred vision, tearing, double vision, ear pain, ear discharge, nose pain, nose congestion, throat pain, throat swelling, mouth pain, mouth swelling, other Cardiovascular: Denies: no symptoms, chest pain, edema, irregular heart rate, lightheadedness, palpitations, syncope, other Respiratory: Denies: no symptoms, cough, shortness of breath, SOB with excertion, SOB at rest, sputum, wheezing, other Gastrointestinal/Abdominal: Denies: no symptoms, abdomen distended, abdominal pain, black stools, tarry stools, blood in stool, constipated, diarrhea, difficulty swallowing, nausea, poor appetite, poor fluid intake, rectal bleeding , vomiting, other Genitourinary: Denies: no symptoms, burning, discharge, frequency, flank pain, hematuria, incontinence, pain, urgency, other Neurologic/Psychiatric: Denies: no symptoms, anxiety, depressed, emotional problems, headache, numbness, paresthesia, pre-existing deficit, seizure, tingling, tremors, weakness, other Endocrine: Denies: no symptoms, excessive sweating, flushing, intolerance to cold, intolerance to heat, increased hunger, increased thirst, increased urine, unexplained weight gain, unexplained weight loss, other Allergies: Coded Allergies: No Known Allergies (Unverified , 09/24/18) Subjective 09/26: no fevers or chills, no bleeding, no night sweats Objective Objective Current Medications Medications (Trade) Dose Ordered Sig/Michael Route PRN Reason Start Time Stop Time Status Last Admin Dose Admin Amlodipine Besylate (Norvasc) 5 mg BID ORAL 09/26/18 09:00 10/25/18 08:59 09/26/18 08:49 Ceftriaxone Sodium 1 gm/ Dextrose 55 ml @ 110 mls/hr Q24H IVPB 09/25/18 15:00 10/02/18 14:59 09/25/18 15:07 Clonidine HCl (Catapres Tab) 0.1 mg Q4H PRN ORAL bp over 160 syst 09/24/18 16:41 10/24/18 16:40 09/26/18 04:14 Dextrose (Dextrose 50%) 25 ml Q30M PRN IV Hypoglycemia 09/24/18 17:00 10/24/18 15:29 Dextrose (Dextrose 50%) 50 ml Q30M PRN IV Hypoglycemia 09/24/18 17:00 10/24/18 15:29 Famotidine (Pepcid I.v.) 20 mg Q12HR IVP 09/24/18 21:00 10/24/18 20:59 09/26/18 08:50 Ferrous Sulfate (Feosol) 325 mg THREE TIMES A DAY ORAL 09/25/18 18:00 10/25/18 17:59 09/26/18 08:49 Hydralazine HCl (Apresoline) 10 mg Q6HR ORAL 09/25/18 12:00 10/24/18 17:59 09/25/18 23:07 Insulin Aspart (NovoLOG) BEFORE MEALS AND HS SUBQ 09/24/18 21:00 10/24/18 16:29 09/26/18 06:05 Metformin HCl (Glucophage) 500 mg TIAC ORAL 09/26/18 06:30 10/26/18 06:29 09/26/18 06:04 Ondansetron HCl (Zofran) 4 mg Q6H PRN IVP Nausea & Vomiting 09/24/18 16:41 10/24/18 16:40 Sodium Chloride 1,000 ml @ 50 mls/hr Q20H IV 09/25/18 13:50 10/25/18 13:49 09/26/18 08:49 Last 24 Hour Vital Signs Date Time Temp Pulse Resp B/P (MAP) Pulse Ox O2 Delivery O2 Flow Rate FiO2 09/26/18 09:23 Room Air 09/26/18 08:49 70 132/70 09/26/18 08:35 98.5 70 18 132/70 (90) 96 09/26/18 06:00 133/49 09/26/18 04:14 167/86 09/26/18 04:00 98.2 71 18 167/86 (113) 96 09/26/18 04:00 77 09/26/18 00:00 98.0 89 18 137/89 (105) 95 09/26/18 00:00 78 09/25/18 23:07 142/66 09/25/18 21:00 Room Air 09/25/18 20:00 98.4 74 19 142/66 (91) 95 09/25/18 20:00 70 09/25/18 17:10 134/77 09/25/18 16:00 97.8 67 18 134/77 (96) 94 09/25/18 16:00 68 09/25/18 12:00 98.2 66 18 132/60 (84) 95 09/25/18 12:00 66 09/25/18 11:57 132/50 09/25/18 09:04 68 121/67 09/25/18 09:00 Room Air 09/25/18 08:00 97.0 64 18 121/67 (85) 97 09/25/18 08:00 64 09/25/18 05:51 103/90 09/25/18 04:00 98.0 90 19 103/90 (94) 96 09/25/18 04:00 63 09/25/18 00:00 61 09/25/18 00:00 112/66 09/25/18 00:00 98.0 71 18 112/66 (81) 96 09/24/18 21:00 Room Air 09/24/18 20:00 97.9 71 18 166/69 (101) 96 09/24/18 20:00 61 09/24/18 17:14 60 155/61 09/24/18 17:11 155/61 09/24/18 16:30 61 09/24/18 16:30 97.3 60 20 155/61 (92) 96 09/24/18 16:21 Room Air 09/24/18 16:00 97.0 60 18 162/79 (106) 96 09/24/18 14:56 Room Air 09/24/18 14:39 98.1 68 20 179/64 100 Room Air 09/24/18 14:26 180/72 09/24/18 13:19 98.1 69 20 178/50 96 Room Air 09/24/18 11:18 97.7 67 20 194/65 96 Room Air 09/24/18 11:18 66 15 Room Air 09/24/18 11:05 100.0 75 20 202/75 (117) 99 Room Air Intake and Output 09/25/18 09/26/18 19:00 07:00 Intake Total 693.333 ml Balance 693.333 ml IV Total 693.333 ml # Voids 2 2 Labs Test 09/24/18 11:30 09/24/18 12:10 09/25/18 06:15 White Blood Count 8.0 K/UL (4.8-10.8) 9.5 K/UL (4.8-10.8) Red Blood Count 3.85 M/UL (4.20-5.40) 3.69 M/UL (4.20-5.40) Hemoglobin 11.6 G/DL (12.0-16.0) 11.1 G/DL (12.0-16.0) Hematocrit 36.2 % (37.0-47.0) 34.3 % (37.0-47.0) Mean Corpuscular Volume 94 FL (80-99) 93 FL (80-99) Mean Corpuscular Hemoglobin 30.2 PG (27.0-31.0) 30.1 PG (27.0-31.0) Mean Corpuscular Hemoglobin Concent 32.1 G/DL (32.0-36.0) 32.5 G/DL (32.0-36.0) Red Cell Distribution Width 12.9 % (11.6-14.8) 12.4 % (11.6-14.8) Platelet Count 232 K/UL (150-450) 198 K/UL (150-450) Mean Platelet Volume 7.6 FL (6.5-10.1) 7.3 FL (6.5-10.1) Neutrophils (%) (Auto) 84.0 % (45.0-75.0) 72.4 % (45.0-75.0) Lymphocytes (%) (Auto) 9.8 % (20.0-45.0) 18.4 % (20.0-45.0) Monocytes (%) (Auto) 5.4 % (1.0-10.0) 6.7 % (1.0-10.0) Eosinophils (%) (Auto) 0.2 % (0.0-3.0) 1.8 % (0.0-3.0) Basophils (%) (Auto) 0.6 % (0.0-2.0) 0.6 % (0.0-2.0) Sodium Level 139 MMOL/L (136-145) 139 MMOL/L (136-145) Potassium Level 4.3 MMOL/L (3.5-5.1) 3.9 MMOL/L (3.5-5.1) Chloride Level 102 MMOL/L (98-107) 104 MMOL/L (98-107) Carbon Dioxide Level 27 MMOL/L (21-32) 29 MMOL/L (21-32) Anion Gap 10 mmol/L (5-15) 7 mmol/L (5-15) Blood Urea Nitrogen 18 mg/dL (7-18) 14 mg/dL (7-18) Creatinine 0.9 MG/DL (0.55-1.30) 0.9 MG/DL (0.55-1.30) Estimat Glomerular Filtration Rate mL/min (>60) mL/min (>60) Glucose Level 221 MG/DL (74-106) 150 MG/DL (74-106) Calcium Level 8.9 MG/DL (8.5-10.1) 8.7 MG/DL (8.5-10.1) Total Bilirubin 0.4 MG/DL (0.2-1.0) 0.5 MG/DL (0.2-1.0) Aspartate Amino Transf (AST/SGOT) 17 U/L (15-37) 17 U/L (15-37) Alanine Aminotransferase (ALT/SGPT) 21 U/L (12-78) 18 U/L (12-78) Alkaline Phosphatase 88 U/L (46-116) 77 U/L (46-116) Troponin I 0.000 ng/mL (0.000-0.056) 0.007 ng/mL (0.000-0.056) Total Protein 8.0 G/DL (6.4-8.2) 7.0 G/DL (6.4-8.2) Albumin 3.5 G/DL (3.4-5.0) 3.3 G/DL (3.4-5.0) Globulin 4.5 g/dL 3.7 g/dL Albumin/Globulin Ratio 0.8 (1.0-2.7) 0.9 (1.0-2.7) Lipase 70 U/L (73-393) 95 U/L (73-393) Urine Color Yellow Urine Appearance Slightly cloudy Urine pH 7 (4.5-8.0) Urine Specific Brewer 1.015 (1.005-1.035) Urine Protein 2+ (NEGATIVE) Urine Glucose (UA) Negative (NEGATIVE) Urine Ketones Negative (NEGATIVE) Urine Blood 1+ (NEGATIVE) Urine Nitrite Negative (NEGATIVE) Urine Bilirubin Negative (NEGATIVE) Urine Urobilinogen Normal MG/DL (0.0-1.0) Urine Leukocyte Esterase 3+ (NEGATIVE) Urine RBC 20-30 /HPF (0 - 2) Urine WBC 5-10 /HPF (0 - 2) Urine Squamous Epithelial Cells Many /LPF (NONE/OCC) Urine Bacteria Moderate /HPF (NONE) Urine Opiates Screen Negative (NEGATIVE) Urine Barbiturates Screen Negative (NEGATIVE) Phencyclidine (PCP) Screen Negative (NEGATIVE) Urine Amphetamines Screen Negative (NEGATIVE) Urine Benzodiazepines Screen Negative (NEGATIVE) Urine Cocaine Screen Negative (NEGATIVE) Urine Marijuana (THC) Screen Negative (NEGATIVE) Hemoglobin A1c 7.2 % (4.3-6.0) Uric Acid 5.1 MG/DL (2.6-7.2) Phosphorus Level 3.6 MG/DL (2.5-4.9) Magnesium Level 2.3 MG/DL (1.8-2.4) Iron Level 39 ug/dL (50-175) Total Iron Binding Capacity 256 ug/dL (250-450) Percent Iron Saturation 15 % (15-50) Unsaturated Iron Binding 217 ug/dL (112-346) Ferritin 74 NG/ML (8-388) Gamma Glutamyl Transpeptidase 39 U/L (5-85) Pro-B-Type Natriuretic Peptide 587 pg/mL (0-125) Triglycerides Level 59 MG/DL (30-150) Cholesterol Level 204 MG/DL (< 200) LDL Cholesterol 148 mg/dL (<100) HDL Cholesterol 46 MG/DL (40-60) Cholesterol/HDL Ratio 4.4 (3.3-4.4) Vitamin B12 Level 450 PG/ML (193-986) Folate 30.1 NG/ML (8.6-58.9) Thyroid Stimulating Hormone (TSH) 3.181 uiU/mL (0.358-3.740) Height (Feet): 5 Height (Inches): 2.00 Weight (Pounds): 142 Objective Vitals: reviewed General Appearance: NAD HEENT: normocephalic, atraumatic Neck: non-tender, normal alignment Respiratory/Chest: normal breath sounds bilaterally Cardiovascular/Chest: normal peripheral pulses, normal rate Abdomen: normal bowel sounds, soft, nontender Extremities: normal range of motion Casimiro Somers MD Sep 26, 2018 09:50
--- NOTE | 2018-09-26 11:17 | GI Initial Consult Note ---
History of Present Illness General Date patient seen: Sep 26, 2018 Time patient seen: 11:12 Reason for Hospitalization: Generalized Weakness Referring physician: EZE SMITH Reason for Consultation: N/V Present Illness HPI Patient presents emergency department today complaint acute onset of nausea vomiting associate abdominal discomfort. Patient was a senior daycare where she began to feel ill. And she was brought here by EMS for further evaluations. Patient denies any chest pain. Denies any shortness of breath. No other complaints are noted. Symptoms noted to be severe. Patient states that she had normal bowel movements denies any rectal bleeding. Symptoms however noted to be severe and patient usually does not vomit or have back pain. No other modifying factors. No other associated signs and symptoms. No other complaints were noted. GI consulted for abdominal pain and nausea vomiting. Patient seen, awake alert no apparent distress with no active signs or symptoms of nausea vomiting. Patient has a history of chronic constipation, but has reported normal bowel movements. She presents today with hemoglobin of 11, no transaminitis and negative urine toxicity. Abdominal pelvis CT negative for GI work-up. Unknown history of endoscopic colonoscopy. Home Meds Reported Medications Omeprazole (OMEPRAZOLE) 20 Mg Capsule.dr, 20 MG ORAL DAILY, CAP 09/24/18 Hydrochlorothiazide* (HYDROCHLOROTHIAZIDE*) 12.5 Mg Capsule, 12.5 MG ORAL DAILY , CAP 09/24/18 Losartan Potassium* (LOSARTAN POTASSIUM*) 50 Mg Tablet, 100 MG ORAL DAILY, TAB 09/24/18 Minoxidil* (LONITEN*) 2.5 Mg Tablet, 5 MG PO BID, TAB 09/24/18 Travoprost (TRAVATAN Z) 5 Ml Drops, OP, ML 09/24/18 Ferrous Sulfate (FEROSUL) 325 Mg Tablet, 325 MG PO DAILY, TAB 09/24/18 Carvedilol* (CARVEDILOL*) 25 Mg Tablet, 25 MG ORAL BID, TAB 09/24/18 Amlodipine Besylate* (AMLODIPINE BESYLATE*) 10 Mg Tablet, 10 MG ORAL DAILY, TAB 09/24/18 Gabapentin* (GABAPENTIN*) 300 Mg Capsule, 300 MG ORAL BID, CAP 0 Refills 09/24/18 Glimepiride* (GLIMEPIRIDE*) 1 Mg Tablet, 1 MG ORAL DAILY, TAB 09/24/18 Metformin Hcl* (METFORMIN HCL*) 1,000 Mg Tablet, 1000 MG ORAL BID, TAB 09/24/18 Discontinued Reported Medications No Known Medications* (NKM - No Known Medications*) ., 0 ., 0 Refills 09/24/18 Med list reviewed/reconciled: Yes Allergies: Coded Allergies: No Known Allergies (Unverified , 09/24/18) Patient History Limited by: medical condition History Provided By: Medical Record PMH Narrative Past Medical History: DM, HTN, other - Hyperlipidemia PMH Narrative Gastritis, constipation, diverticulosis Social History: Denies: smoking, alcohol use, drug use Now: No Reviewed Nursing Documentation: PMH: Agreed; PSxH: Agreed Nursing Documentation-PMH Past Medical History: No History, Except For Hx Cardiac Problems: Yes - Hyperlipidemia Hx Hypertension: Yes - Lumbar stenosis Hx Diabetes: Yes - Type 2 Hx Gastrointestinal Problems: Yes - Gastritis, chronic constipation, diverticulosis Social History: Denies: smoking, alcohol use, drug use, other Review of Systems All Other Systems: negative except mentioned in HPI Physical Exam Vital Signs Date Time Temp Pulse Resp B/P (MAP) Pulse Ox O2 Delivery O2 Flow Rate FiO2 09/24/18 11:05 100.0 75 20 202/75 (117) 99 Room Air Sp02 EP Interpretation: reviewed, normal General Appearance: well appearing, no apparent distress, alert Head: normocephalic EENT: PERRL/EOMI, normal ENT inspection Neck: supple Respiratory: normal breath sounds, no respiratory distress Cardiovascular: normal rate Gastrointestinal: normal inspection, non tender, soft, normal bowel sounds, non -distended Rectal: deferred Genitourinary: no CVA tenderness Musculoskeletal: normal inspection, back normal Neurologic: normal inspection, alert, oriented x3, responsive Psychiatric: normal inspection, judgement/insight normal, memory normal Skin: normal inspection, normal color, no rash, warm/dry, palpation normal, well hydrated Lymphatic: normal inspection, no adenopathy Current Medications Current Medications Medications (Trade) Dose Ordered Sig/Michael Route PRN Reason Start Time Stop Time Status Last Admin Dose Admin Amlodipine Besylate (Norvasc) 5 mg BID ORAL 09/26/18 09:00 10/25/18 08:59 09/26/18 08:49 Ceftriaxone Sodium 1 gm/ Dextrose 55 ml @ 110 mls/hr Q24H IVPB 09/25/18 15:00 10/02/18 14:59 09/25/18 15:07 Clonidine HCl (Catapres Tab) 0.1 mg Q4H PRN ORAL bp over 160 syst 09/24/18 16:41 10/24/18 16:40 09/26/18 04:14 Dextrose (Dextrose 50%) 25 ml Q30M PRN IV Hypoglycemia 09/24/18 17:00 10/24/18 15:29 Dextrose (Dextrose 50%) 50 ml Q30M PRN IV Hypoglycemia 09/24/18 17:00 10/24/18 15:29 Famotidine (Pepcid I.v.) 20 mg Q12HR IVP 09/24/18 21:00 10/24/18 20:59 09/26/18 08:50 Ferrous Sulfate (Feosol) 325 mg THREE TIMES A DAY ORAL 09/25/18 18:00 10/25/18 17:59 09/26/18 08:49 Hydralazine HCl (Apresoline) 10 mg Q6HR ORAL 09/25/18 12:00 10/24/18 17:59 09/25/18 23:07 Insulin Aspart (NovoLOG) BEFORE MEALS AND HS SUBQ 09/24/18 21:00 10/24/18 16:29 09/26/18 06:05 Metformin HCl (Glucophage) 500 mg TIAC ORAL 09/26/18 06:30 10/26/18 06:29 09/26/18 11:05 Ondansetron HCl (Zofran) 4 mg Q6H PRN IVP Nausea & Vomiting 09/24/18 16:41 10/24/18 16:40 09/26/18 11:05 Sodium Chloride 1,000 ml @ 50 mls/hr Q20H IV 09/25/18 13:50 10/25/18 13:49 09/26/18 08:49 GI: Plan Problems: (1) Vomiting (2) Dehydration (3) Hematuria (4) Abdominal pain Plan Abdominal pelvic CT reviewed, negative for any acute process in terms of GI Anemia work-up reviewed Urine toxicity is negative Zofran as needed, Reglan for persistent vomiting We will consider endoscopy if patient has persistent vomiting IV and p.o. hydration plus electrolyte correction Antibiotics Monitor H&H, PRN transfusion PPI Supportive care CLD, Advance diet as tolerated Discussed with Dr. Vosoghi. Thank you for this patient referral, we will follow. The patient was seen and examined at bedside and all new and available data was reviewed in the patients chart. I agree with the above findings, impression and plan. (Patient seen earlier today. Signature stamp does not reflect patient encounter time.). - MD Dulce Maria WilsonDign[facility] - GilbertLizy VASQUEZ Sep 26, 2018 11:17
--- NOTE | 2018-09-26 11:45 | NUR ---
NURSE NOTES: Patient transferred from [facility] around 1145, accompanied by RN and BELT KNIFE FEEDER; patient awake, alert x2, confused, italian speaking; IV LAC 18G 1/2NS 75cc running; belonging list sign by transferring and receiving nurse; received insulin pen and one bag of anti-biotic, also patient's own walker at the bed side. Need to collect OB-Stool; patient is NPO, sing at the bed side; bed at the lowest position, side rails up x2, breaks engaged, bed alarm on; call light within reach; will keep monitoring.
--- NOTE | 2018-09-26 11:54 | NUR ---
NURSE NOTES: Transferred patient to med Surg room 405 bed 2. family notified. report given and all orders transferred per protocol. unable to find earring as listed in belonging list. charge nurse notified. iv intact and patent. vital signs stable.
[2018-09-26 12:00] VITALS: BP 146/60
[2018-09-26] MEDS ORDERED: cefTRIAXone 1 GM in D5W 55 ML IVPB SCH (15:00)
[2018-09-26 16:00] VITALS: BP 154/63
--- NOTE | 2018-09-26 17:04 | Nephrology Progress Note ---
Assessment/Plan Problem List: (1) Hypertension (2) Hydronephrosis (3) Dehydration (4) Vomiting (5) Abdominal pain (6) UTI (urinary tract infection) Assessment HTN OOC DM, elevated HgbA1c Abdominal pain and Vomiting: Now improved UTI , Hematuria Dehydration Hydronephrosis Plan BP meds with Parameters Antibiotics for uti now clear liquids Subjective ROS Limited/Unobtainable: No Constitutional: Reports: malaise Objective Objective Last 24 Hour Vital Signs Date Time Temp Pulse Resp B/P (MAP) Pulse Ox O2 Delivery O2 Flow Rate FiO2 09/26/18 16:00 98.6 77 18 154/63 (93) 95 09/26/18 12:46 146/60 09/26/18 12:00 97.0 70 18 146/60 (88) 95 09/26/18 09:23 Room Air 09/26/18 08:49 70 132/70 09/26/18 08:35 98.5 70 18 132/70 (90) 96 09/26/18 06:00 133/49 09/26/18 04:14 167/86 09/26/18 04:00 98.2 71 18 167/86 (113) 96 09/26/18 04:00 77 09/26/18 00:00 98.0 89 18 137/89 (105) 95 09/26/18 00:00 78 09/25/18 23:07 142/66 09/25/18 21:00 Room Air 09/25/18 20:00 98.4 74 19 142/66 (91) 95 09/25/18 20:00 70 09/25/18 17:10 134/77 Intake and Output 09/25/18 09/26/18 19:00 07:00 Intake Total 693.333 ml Balance 693.333 ml IV Total 693.333 ml # Voids 2 2 Height (Feet): 5 Height (Inches): 2.00 Weight (Pounds): 142 General Appearance: no apparent distress Neck: non-tender Cardiovascular: normal rate Respiratory/Chest: lungs clear Abdomen: soft Conor Badillo MD Sep 26, 2018 17:04
[2018-09-26] MEDS: Docusate 100mg cap ORAL SCH (18:19)
--- NOTE | 2018-09-26 19:30 | NUR ---
NURSE NOTES: Received patient in bed, [place] speaking only, patient noted ambulating with out assistance, patient moved closer to nursing station, no acute distress noted, VSS, afebrile, call light is within reach, bed is in low position, locked and alarm is on. Will continue to monitor for safety and comfort.
--- NOTE | 2018-09-26 19:33 | NUR ---
HAND-OFF: Report given to JENNY Loza.
[2018-09-26 20:00] VITALS: BP 134/68
--- NOTE | 2018-09-26 23:06 | General Progress Note ---
Assessment/Plan Problem List: (1) Dehydration ICD Codes: E86.0 - Dehydration SNOMED: 37777606 (2) Hypertension ICD Codes: I10 - Essential (primary) hypertension SNOMED: 59354876 (3) Vomiting ICD Codes: R11.10 - Vomiting, unspecified SNOMED: 204685837 (4) Diabetes ICD Codes: E11.9 - Type 2 diabetes mellitus without complications SNOMED: 92135823 (5) Abdominal pain ICD Codes: R10.9 - Unspecified abdominal pain SNOMED: 07812590 (6) UTI (urinary tract infection) ICD Codes: N39.0 - Urinary tract infection, site not specified SNOMED: 51258359 Status: progressing Assessment/Plan: afebrile no cp no sob reviewed chart and labs no acute events Subjective ROS Limited/Unobtainable: Yes Allergies: Coded Allergies: No Known Allergies (Unverified , 09/24/18) Objective Last 24 Hour Vital Signs Date Time Temp Pulse Resp B/P (MAP) Pulse Ox O2 Delivery O2 Flow Rate FiO2 09/26/18 21:20 134/68 09/26/18 21:00 Room Air 09/26/18 20:00 97.4 75 18 134/68 (90) 75 09/26/18 17:03 154/63 09/26/18 17:03 77 154/63 09/26/18 16:00 98.6 77 18 154/63 (93) 95 09/26/18 12:46 146/60 09/26/18 12:00 97.0 70 18 146/60 (88) 95 09/26/18 09:23 Room Air 09/26/18 08:49 70 132/70 09/26/18 08:35 98.5 70 18 132/70 (90) 96 09/26/18 06:00 133/49 09/26/18 04:14 167/86 09/26/18 04:00 98.2 71 18 167/86 (113) 96 09/26/18 04:00 77 09/26/18 00:00 98.0 89 18 137/89 (105) 95 09/26/18 00:00 78 09/25/18 23:07 142/66 Intake and Output 09/25/18 09/26/18 19:00 07:00 Intake Total 693.333 ml Balance 693.333 ml IV Total 693.333 ml # Voids 2 2 Height (Feet): 5 Height (Inches): 2.00 Weight (Pounds): 142 Cardiovascular: normal rate Respiratory/Chest: lungs clear Abdomen: soft Janell Ballesteros MD Sep 26, 2018 23:06
[2018-09-27] VITALS: BP 128/77
[2018-09-27 04:00] VITALS: BP 132/64
[2018-09-27] MEDS: NovoLOG Insulin Flexpen SUBQ SCH ×3 (06:07→17:27)
[2018-09-27] MEDS: HydrALAZINE 10mg Tab ORAL SCH ×2 (06:10→15:11)
[2018-09-27] MEDS: metFORMIN 500mg tab ORAL SCH ×3 (06:10→17:25)
[2018-09-27 06:34] LABS: BASOPHILS % (AUTO) 0.8 % (0.0-2.0); EOSINOPHILS % (AUTO) 1.9 % (0.0-3.0); HEMATOCRIT 35.5 % (37.0-47.0); HEMOGLOBIN 11.5 G/DL (12.0-16.0); LYMPHOCYTES % (AUTO) 19.2 % (20.0-45.0); MEAN CORPUSCULAR VOLUME 92 FL (80-99); MONOCYTES % (AUTO) 9.3 % (1.0-10.0); NEUTROPHILS % (AUTO) 68.8 % (45.0-75.0); PLATELET COUNT 232 K/UL (150-450); RED BLOOD COUNT 3.84 M/UL (4.20-5.40); RED CELL DISTRIBUTION WIDTH 12.3 % (11.6-14.8); WHITE BLOOD COUNT 7.7 K/UL (4.8-10.8)
[2018-09-27 06:50] LABS: ANION GAP 7 mmol/L (5-15); BLOOD UREA NITROGEN 12 mg/dL (7-18); CALCIUM 8.5 MG/DL (8.5-10.1); CARBON DIOXIDE 29 MMOL/L (21-32); CHLORIDE 103 MMOL/L (98-107); POTASSIUM 3.6 MMOL/L (3.5-5.1); SODIUM 139 MMOL/L (136-145)
--- NOTE | 2018-09-27 06:58 | NUR ---
HAND-OFF: Report given to Chary ALVARADO.
--- NOTE | 2018-09-27 07:17 | NUR ---
NURSE NOTES: Patient awake, eating her breakfast; on room air, no sing of shortness of breath, no sing of distress; no sign of chest pain; IV RFA 1/2NS 75cc running; bed at lowest position, side rails up x3, breaks engaged; patient's own walker at the bed side and within reach. will check blood sugar as scheduled; will keep monitoring.
[2018-09-27 08:00] VITALS: BP 161/69
[2018-09-27] MEDS: Docusate 100mg cap ORAL SCH ×3 (08:34→17:26)
--- NOTE | 2018-09-27 09:50 | NUR ---
DISCHARGE PLANNING FAXED CLINICALS TO [facility] T: [phone] F: [phone] AWAIT ACCEPTANCE AND ASSIGNED ROOM NUMBER LEFT MESSAGE FOR DAUGHTER BEHZAD T: [phone] REGARDING DISCHARGE PLAN
--- NOTE | 2018-09-27 10:55 | GI Progress Note ---
Assessment/Plan Problems: (1) Abdominal pain ICD Codes: R10.9 - Unspecified abdominal pain SNOMED: 70608392 (2) Diabetes ICD Codes: E11.9 - Type 2 diabetes mellitus without complications SNOMED: 62087201 (3) Vomiting ICD Codes: R11.10 - Vomiting, unspecified SNOMED: 152459385 (4) Dehydration ICD Codes: E86.0 - Dehydration SNOMED: 19408932 Status: stable Status Narrative Discussed with Dr. Fernandez. Assessment/Plan Abdominal pelvic CT reviewed, negative for any acute process in terms of GI Anemia work-up reviewed Urine toxicity is negative Zofran as needed, Reglan for persistent vomiting We will consider endoscopy if patient has persistent vomiting IV and p.o. hydration plus electrolyte correction Antibiotics Monitor H&H, PRN transfusion PPI Supportive care CLD, Advance diet as tolerated The patient was seen and examined at bedside and all new and available data was reviewed in the patients chart. I agree with the above findings, impression and plan. (Patient seen earlier today. Signature stamp does not reflect patient encounter time.). - Madi Fernandez MD Subjective Gastrointestinal/Abdominal: Reports: no symptoms Objective Last 24 Hour Vital Signs Date Time Temp Pulse Resp B/P (MAP) Pulse Ox O2 Delivery O2 Flow Rate FiO2 09/27/18 09:00 Room Air 09/27/18 08:34 88 161/69 09/27/18 08:00 97.9 88 18 161/69 (99) 95 09/27/18 06:10 135/87 09/27/18 04:00 97.3 72 18 132/64 (86) 09/27/18 00:00 98.0 76 18 128/77 (94) 09/26/18 21:20 134/68 09/26/18 21:00 Room Air 09/26/18 20:00 97.4 75 18 134/68 (90) 75 09/26/18 17:03 154/63 09/26/18 17:03 77 154/63 09/26/18 16:00 98.6 77 18 154/63 (93) 95 09/26/18 12:46 146/60 09/26/18 12:00 97.0 70 18 146/60 (88) 95 Intake and Output 09/26/18 09/27/18 19:00 07:00 Intake Total 1080 ml 250 ml Balance 1080 ml 250 ml Intake Oral 720 ml IV Total 360 ml 250 ml # Voids 4 # Bowel Movements 3 Laboratory Tests Test 09/27/18 06:00 White Blood Count 7.7 K/UL (4.8-10.8) Red Blood Count 3.84 M/UL (4.20-5.40) L Hemoglobin 11.5 G/DL (12.0-16.0) L Hematocrit 35.5 % (37.0-47.0) L Mean Corpuscular Volume 92 FL (80-99) Mean Corpuscular Hemoglobin 29.8 PG (27.0-31.0) Mean Corpuscular Hemoglobin Concent 32.3 G/DL (32.0-36.0) Red Cell Distribution Width 12.3 % (11.6-14.8) Platelet Count 232 K/UL (150-450) Mean Platelet Volume 7.0 FL (6.5-10.1) Neutrophils (%) (Auto) 68.8 % (45.0-75.0) Lymphocytes (%) (Auto) 19.2 % (20.0-45.0) L Monocytes (%) (Auto) 9.3 % (1.0-10.0) Eosinophils (%) (Auto) 1.9 % (0.0-3.0) Basophils (%) (Auto) 0.8 % (0.0-2.0) Sodium Level 139 MMOL/L (136-145) Potassium Level 3.6 MMOL/L (3.5-5.1) Chloride Level 103 MMOL/L (98-107) Carbon Dioxide Level 29 MMOL/L (21-32) Anion Gap 7 mmol/L (5-15) Blood Urea Nitrogen 12 mg/dL (7-18) Creatinine 1.0 MG/DL (0.55-1.30) Estimat Glomerular Filtration Rate mL/min (>60) Glucose Level 111 MG/DL (74-106) H Calcium Level 8.5 MG/DL (8.5-10.1) Height (Feet): 5 Height (Inches): 2.00 Weight (Pounds): 142 General Appearance: WD/WN, no apparent distress, alert Cardiovascular: normal rate Respiratory/Chest: normal breath sounds, no respiratory distress Abdominal Exam: normal bowel sounds, non tender, soft Extremities: non-tender العراقي,Lyla-Kg VEST PRESSER Sep 27, 2018 10:55
[2018-09-27 12:00] VITALS: BP 159/69
--- NOTE | 2018-09-27 12:37 | NUR ---
DISCHARGE PLAN PATIENT'S DAUGHTER HAS REFUSED SNF PLACEMENT SHE REQUESTED PATIENT BE DISCHARGED HOME WITH IV ANTIBIOTICS. DAUGHTER STATED SHE HERSELF IS A NURSE DAUGHTER, BEHZAD, DECLINED DR SMITH'S [facility] RECOMMENDATION. BEHZAD SPECIFICALLY REQUESTED [facility] FLOOR COVERER APPRENTICE FAXED CLINICALS AND ORDER TO THE FOLLOWING: [facility] T: [phone] F: [phone] SPOKE WITH BEHZAD AT [facility] REGARDING START OF SERVICE FOR TOMORROW EDWINA T: [phone] F: [phone] AWAIT CONFIRMATION OF DELIVERY FROM [facility]
--- NOTE | 2018-09-27 12:41 | Hematology/Onc Progress Note ---
Assessment/Plan Assessment/Plan Assessment and Recs: # Anemia of iron deficiency, decreased ferritin, rule out gi bleed (COULD BE RELATED TO HEMATURIA) --> Anemia workup has been ordered, rule out gi bleed --> No evidence of hemolysis is noted, peripheral smear has been reviewed. --> Hgb goal >7. Transfuse prn. --> Medications have been reviewed --> low threshold for gi evaluation in case has occult + --> doesn't need a bone marrow biopsy --> ferrous sulfate has been started per pcp --> gu eval as needed --> trend hgb 11.6-->11.1->11.5 # Right renal angiomyolipoma. Other subcentimeter low-attenuation renal lesions are too small to characterize, most likely represent benign cortical cysts. --> appears to be non-malignant --> hold off on further imaging, doesn't require biopsy # Abdominal pain --> potentially due to hydronephrosis --> gu eval prn basis # Dehydration - ivf have been started --> per renal recs # Hydronephrosis --> per gu # Hematuria # Nausea/Vomiting --> per gi, improved # Hypertension --> sbp goal <140 The timing of this note does not necessarily reflect the time of the patient was seen. GREATLY APPRECIATE CONSULTATION. Subjective HEENT: Denies: no symptoms, eye pain, blurred vision, tearing, double vision, ear pain, ear discharge, nose pain, nose congestion, throat pain, throat swelling, mouth pain, mouth swelling, other Cardiovascular: Denies: no symptoms, chest pain, edema, irregular heart rate, lightheadedness, palpitations, syncope, other Respiratory: Denies: no symptoms, cough, shortness of breath, SOB with excertion, SOB at rest, sputum, wheezing, other Genitourinary: Denies: no symptoms, burning, discharge, frequency, flank pain, hematuria, incontinence, pain, urgency, other Neurologic/Psychiatric: Denies: no symptoms, anxiety, depressed, emotional problems, headache, numbness, paresthesia, pre-existing deficit, seizure, tingling, tremors, weakness, other Endocrine: Denies: no symptoms, excessive sweating, flushing, intolerance to cold, intolerance to heat, increased hunger, increased thirst, increased urine, unexplained weight gain, unexplained weight loss, other Hematologic/Lymphatic: Denies: no symptoms, anemia, easy bleeding, easy bruising, adenopathy, other Allergies: Coded Allergies: No Known Allergies (Unverified , 09/24/18) Subjective 09/26: no fevers or chills, no bleeding, no night sweats 09/27: no events, labs have been reviewed, anemia panel noted Objective Objective Current Medications Medications (Trade) Dose Ordered Sig/Michael Route PRN Reason Start Time Stop Time Status Last Admin Dose Admin Amlodipine Besylate (Norvasc) 5 mg BID ORAL 09/26/18 18:00 10/25/18 08:59 09/27/18 08:34 Ceftriaxone Sodium 1 gm/ Dextrose 55 ml @ 110 mls/hr Q24H IVPB 09/26/18 15:00 10/02/18 14:59 09/26/18 15:21 Clonidine HCl (Catapres Tab) 0.1 mg Q4H PRN ORAL bp over 160 syst 09/26/18 12:00 10/24/18 11:59 Dextrose (Dextrose 50%) 25 ml Q30M PRN IV Hypoglycemia 09/26/18 12:00 10/24/18 15:29 Dextrose (Dextrose 50%) 50 ml Q30M PRN IV Hypoglycemia 09/26/18 12:00 10/24/18 15:29 Docusate Sodium (Colace) 100 mg THREE TIMES A DAY ORAL 09/26/18 18:00 10/26/18 17:59 09/27/18 08:34 Hydralazine HCl (Apresoline) 10 mg Q8HR ORAL 09/26/18 22:00 10/24/18 17:59 09/27/18 06:10 Insulin Aspart (NovoLOG) BEFORE MEALS AND HS SUBQ 09/26/18 16:30 10/24/18 16:29 09/27/18 11:59 Metformin HCl (Glucophage) 500 mg TIAC ORAL 09/26/18 16:30 10/26/18 06:29 09/27/18 11:58 Ondansetron HCl (Zofran) 4 mg Q6H PRN IVP Nausea & Vomiting 09/26/18 17:00 10/24/18 16:59 Pantoprazole (Protonix) 40 mg EVERY 12 HOURS ORAL 09/26/18 21:00 10/26/18 20:59 09/27/18 08:34 Sodium Chloride 1,000 ml @ 50 mls/hr Q20H IV 09/26/18 12:00 10/25/18 13:49 09/27/18 08:00 Last 24 Hour Vital Signs Date Time Temp Pulse Resp B/P (MAP) Pulse Ox O2 Delivery O2 Flow Rate FiO2 09/27/18 12:00 98.5 78 19 159/69 (99) 97 09/27/18 09:00 Room Air 09/27/18 08:34 88 161/69 09/27/18 08:00 97.9 88 18 161/69 (99) 95 09/27/18 06:10 135/87 09/27/18 04:00 97.3 72 18 132/64 (86) 09/27/18 00:00 98.0 76 18 128/77 (94) 09/26/18 21:20 134/68 09/26/18 21:00 Room Air 09/26/18 20:00 97.4 75 18 134/68 (90) 75 09/26/18 17:03 154/63 09/26/18 17:03 77 154/63 09/26/18 16:00 98.6 77 18 154/63 (93) 95 09/26/18 12:46 146/60 09/26/18 12:00 97.0 70 18 146/60 (88) 95 09/26/18 09:23 Room Air 09/26/18 08:49 70 132/70 09/26/18 08:35 98.5 70 18 132/70 (90) 96 09/26/18 06:00 133/49 09/26/18 04:14 167/86 09/26/18 04:00 98.2 71 18 167/86 (113) 96 09/26/18 04:00 77 09/26/18 00:00 98.0 89 18 137/89 (105) 95 09/26/18 00:00 78 09/25/18 23:07 142/66 09/25/18 21:00 Room Air 09/25/18 20:00 98.4 74 19 142/66 (91) 95 09/25/18 20:00 70 09/25/18 17:10 134/77 09/25/18 16:00 97.8 67 18 134/77 (96) 94 09/25/18 16:00 68 Intake and Output 09/26/18 09/27/18 19:00 07:00 Intake Total 1080 ml 250 ml Balance 1080 ml 250 ml Intake Oral 720 ml IV Total 360 ml 250 ml # Voids 4 # Bowel Movements 3 Labs Test 09/25/18 06:15 09/27/18 06:00 White Blood Count 9.5 K/UL (4.8-10.8) 7.7 K/UL (4.8-10.8) Red Blood Count 3.69 M/UL (4.20-5.40) 3.84 M/UL (4.20-5.40) Hemoglobin 11.1 G/DL (12.0-16.0) 11.5 G/DL (12.0-16.0) Hematocrit 34.3 % (37.0-47.0) 35.5 % (37.0-47.0) Mean Corpuscular Volume 93 FL (80-99) 92 FL (80-99) Mean Corpuscular Hemoglobin 30.1 PG (27.0-31.0) 29.8 PG (27.0-31.0) Mean Corpuscular Hemoglobin Concent 32.5 G/DL (32.0-36.0) 32.3 G/DL (32.0-36.0) Red Cell Distribution Width 12.4 % (11.6-14.8) 12.3 % (11.6-14.8) Platelet Count 198 K/UL (150-450) 232 K/UL (150-450) Mean Platelet Volume 7.3 FL (6.5-10.1) 7.0 FL (6.5-10.1) Neutrophils (%) (Auto) 72.4 % (45.0-75.0) 68.8 % (45.0-75.0) Lymphocytes (%) (Auto) 18.4 % (20.0-45.0) 19.2 % (20.0-45.0) Monocytes (%) (Auto) 6.7 % (1.0-10.0) 9.3 % (1.0-10.0) Eosinophils (%) (Auto) 1.8 % (0.0-3.0) 1.9 % (0.0-3.0) Basophils (%) (Auto) 0.6 % (0.0-2.0) 0.8 % (0.0-2.0) Sodium Level 139 MMOL/L (136-145) 139 MMOL/L (136-145) Potassium Level 3.9 MMOL/L (3.5-5.1) 3.6 MMOL/L (3.5-5.1) Chloride Level 104 MMOL/L (98-107) 103 MMOL/L (98-107) Carbon Dioxide Level 29 MMOL/L (21-32) 29 MMOL/L (21-32) Anion Gap 7 mmol/L (5-15) 7 mmol/L (5-15) Blood Urea Nitrogen 14 mg/dL (7-18) 12 mg/dL (7-18) Creatinine 0.9 MG/DL (0.55-1.30) 1.0 MG/DL (0.55-1.30) Estimat Glomerular Filtration Rate mL/min (>60) mL/min (>60) Glucose Level 150 MG/DL (74-106) 111 MG/DL (74-106) Hemoglobin A1c 7.2 % (4.3-6.0) Uric Acid 5.1 MG/DL (2.6-7.2) Calcium Level 8.7 MG/DL (8.5-10.1) 8.5 MG/DL (8.5-10.1) Phosphorus Level 3.6 MG/DL (2.5-4.9) Magnesium Level 2.3 MG/DL (1.8-2.4) Iron Level 39 ug/dL (50-175) Total Iron Binding Capacity 256 ug/dL (250-450) Percent Iron Saturation 15 % (15-50) Unsaturated Iron Binding 217 ug/dL (112-346) Ferritin 74 NG/ML (8-388) Total Bilirubin 0.5 MG/DL (0.2-1.0) Gamma Glutamyl Transpeptidase 39 U/L (5-85) Aspartate Amino Transf (AST/SGOT) 17 U/L (15-37) Alanine Aminotransferase (ALT/SGPT) 18 U/L (12-78) Alkaline Phosphatase 77 U/L (46-116) Troponin I 0.007 ng/mL (0.000-0.056) Pro-B-Type Natriuretic Peptide 587 pg/mL (0-125) Total Protein 7.0 G/DL (6.4-8.2) Albumin 3.3 G/DL (3.4-5.0) Globulin 3.7 g/dL Albumin/Globulin Ratio 0.9 (1.0-2.7) Triglycerides Level 59 MG/DL (30-150) Cholesterol Level 204 MG/DL (< 200) LDL Cholesterol 148 mg/dL (<100) HDL Cholesterol 46 MG/DL (40-60) Cholesterol/HDL Ratio 4.4 (3.3-4.4) Lipase 95 U/L (73-393) Vitamin B12 Level 450 PG/ML (193-986) Folate 30.1 NG/ML (8.6-58.9) Thyroid Stimulating Hormone (TSH) 3.181 uiU/mL (0.358-3.740) Height (Feet): 5 Height (Inches): 2.00 Weight (Pounds): 142 Objective Vitals: reviewed General Appearance: NAD HEENT: normocephalic, atraumatic Neck: non-tender, normal alignment Respiratory/Chest: normal breath sounds bilaterally Cardiovascular/Chest: normal peripheral pulses, normal rate Abdomen: normal bowel sounds, soft, nontender Extremities: normal range of motion Casimiro Somers MD Sep 27, 2018 12:41
--- NOTE | 2018-09-27 12:56 | Nephrology Progress Note ---
Assessment/Plan Problem List: (1) Hypertension (2) Hydronephrosis (3) Dehydration (4) Vomiting (5) Abdominal pain (6) UTI (urinary tract infection) Assessment HTN OOC DM, elevated HgbA1c Abdominal pain and Vomiting: Now improved UTI , Hematuria Dehydration Hydronephrosis Plan DC IV fluids- Advance diet Start Flomax change antibiotics to oral BP meds with Parameters Antibiotics for uti Subjective ROS Limited/Unobtainable: No Constitutional: Reports: malaise Objective Objective Last 24 Hour Vital Signs Date Time Temp Pulse Resp B/P (MAP) Pulse Ox O2 Delivery O2 Flow Rate FiO2 09/27/18 12:00 98.5 78 19 159/69 (99) 97 09/27/18 09:00 Room Air 09/27/18 08:34 88 161/69 09/27/18 08:00 97.9 88 18 161/69 (99) 95 09/27/18 06:10 135/87 09/27/18 04:00 97.3 72 18 132/64 (86) 09/27/18 00:00 98.0 76 18 128/77 (94) 09/26/18 21:20 134/68 09/26/18 21:00 Room Air 09/26/18 20:00 97.4 75 18 134/68 (90) 75 09/26/18 17:03 154/63 09/26/18 17:03 77 154/63 09/26/18 16:00 98.6 77 18 154/63 (93) 95 Intake and Output 09/26/18 09/27/18 19:00 07:00 Intake Total 1080 ml 250 ml Balance 1080 ml 250 ml Intake Oral 720 ml IV Total 360 ml 250 ml # Voids 4 # Bowel Movements 3 Laboratory Tests 09/27/18 06:00: White Blood Count 7.7, Red Blood Count 3.84L, Hemoglobin 11.5L, Hematocrit 35.5L , Mean Corpuscular Volume 92, Mean Corpuscular Hemoglobin 29.8, Mean Corpuscular Hemoglobin Concent 32.3, Red Cell Distribution Width 12.3, Platelet Count 232, Mean Platelet Volume 7.0, Neutrophils (%) (Auto) 68.8, Lymphocytes (% ) (Auto) 19.2L, Monocytes (%) (Auto) 9.3, Eosinophils (%) (Auto) 1.9, Basophils (%) (Auto) 0.8, Sodium Level 139, Potassium Level 3.6, Chloride Level 103, Carbon Dioxide Level 29, Anion Gap 7, Blood Urea Nitrogen 12, Creatinine 1.0, Estimat Glomerular Filtration Rate , Glucose Level 111H, Calcium Level 8.5 Height (Feet): 5 Height (Inches): 2.00 Weight (Pounds): 142 General Appearance: no apparent distress Respiratory/Chest: lungs clear Abdomen: soft Objective no change Conor Badillo MD Sep 27, 2018 12:56
[2018-09-27] MEDS ORDERED: Tamsulosin 0.4mg cap ORAL SCH (13:00)
--- NOTE | 2018-09-27 13:14 | NUR ---
HAND-OFF: Report given to JENNY Miramontes.
--- NOTE | 2018-09-27 13:21 | General Progress Note ---
Assessment/Plan Problem List: (1) Diabetes ICD Codes: E11.9 - Type 2 diabetes mellitus without complications SNOMED: 38871411 (2) Abdominal pain ICD Codes: R10.9 - Unspecified abdominal pain SNOMED: 03637227 (3) Hypertension ICD Codes: I10 - Essential (primary) hypertension SNOMED: 26991241 Status: stable Assessment/Plan: Metformin 500 mg tid continue NISS ac / hs Subjective Allergies: Coded Allergies: No Known Allergies (Unverified , 09/24/18) All Systems: reviewed and negative except above Subjective Item Value Date Time Bedside Blood Glucose 140 mg/dl H 09/26/18 0630 Bedside Blood Glucose 150 mg/dl H 09/25/18 2301 Bedside Blood Glucose 150 mg/dl H 09/25/18 2100 Bedside Blood Glucose 118 mg/dl 09/25/18 1711 Bedside Blood Glucose 138 mg/dl H 09/25/18 1130 Bedside Blood Glucose 154 mg/dl H 09/25/18 0625 events noted interval noted reviewed Objective Last 24 Hour Vital Signs Date Time Temp Pulse Resp B/P (MAP) Pulse Ox O2 Delivery O2 Flow Rate FiO2 09/27/18 12:00 98.5 78 19 159/69 (99) 97 09/27/18 09:00 Room Air 09/27/18 08:34 88 161/69 09/27/18 08:00 97.9 88 18 161/69 (99) 95 09/27/18 06:10 135/87 09/27/18 04:00 97.3 72 18 132/64 (86) 09/27/18 00:00 98.0 76 18 128/77 (94) 09/26/18 21:20 134/68 09/26/18 21:00 Room Air 09/26/18 20:00 97.4 75 18 134/68 (90) 75 09/26/18 17:03 154/63 09/26/18 17:03 77 154/63 09/26/18 16:00 98.6 77 18 154/63 (93) 95 Intake and Output 09/26/18 09/27/18 19:00 07:00 Intake Total 1080 ml 250 ml Balance 1080 ml 250 ml Intake Oral 720 ml IV Total 360 ml 250 ml # Voids 4 # Bowel Movements 3 Laboratory Tests 09/27/18 06:00: White Blood Count 7.7, Red Blood Count 3.84L, Hemoglobin 11.5L, Hematocrit 35.5L , Mean Corpuscular Volume 92, Mean Corpuscular Hemoglobin 29.8, Mean Corpuscular Hemoglobin Concent 32.3, Red Cell Distribution Width 12.3, Platelet Count 232, Mean Platelet Volume 7.0, Neutrophils (%) (Auto) 68.8, Lymphocytes (% ) (Auto) 19.2L, Monocytes (%) (Auto) 9.3, Eosinophils (%) (Auto) 1.9, Basophils (%) (Auto) 0.8, Sodium Level 139, Potassium Level 3.6, Chloride Level 103, Carbon Dioxide Level 29, Anion Gap 7, Blood Urea Nitrogen 12, Creatinine 1.0, Estimat Glomerular Filtration Rate , Glucose Level 111H, Calcium Level 8.5 Height (Feet): 5 Height (Inches): 2.00 Weight (Pounds): 142 General Appearance: no apparent distress Neck: normal alignment Cardiovascular: normal rate Respiratory/Chest: chest wall non-tender Abdomen: normal bowel sounds Edema: no edema noted Arm (L), no edema noted Arm (R), no edema noted Leg (L), no edema noted Leg (R), no edema noted Pedal (L), no edema noted Pedal (R), no edema noted Generalized Objective Item Value Date Time Bedside Blood Glucose 132 mg/dl H 09/27/18 1159 Bedside Blood Glucose 105 mg/dl 09/27/18 0607 Bedside Blood Glucose 158 mg/dl H 09/26/184 Bedside Blood Glucose 147 mg/dl H 09/26/18 1827 Bedside Blood Glucose 137 mg/dl H 09/26/18 1103 Nilson Bowen MD Sep 27, 2018 13:21
[2018-09-27 16:00] VITALS: BP 144/68
[2018-09-27 17:25] VITALS: BP 144/68
[2018-09-27] MEDS ORDERED: NITROFURANTOIN100 M2 ORAL (18:23)
--- NOTE | 2018-09-27 18:44 | NUR ---
NURSE NOTES: patient has been discharged to home, going ambulatory accompanied by son Joce, going by private vehicle. IV access was taken off, no bleeding noted after site compression. Patient signed off belongings list and left with all her belongings. Given discharge packet with educational pamphlet and 1 sheet of prescription medication.. Pt in stable condition and VS, no complaint of pain or discomfort at the moment. Taken ID band off.
--- NOTE | 2018-09-30 07:31 | Discharge Summary ---
Discharge Summary Discharge Summary _ DATE OF ADMISSION: 09/24/2018 DATE OF DISCHARGE: 09/27/[address] Ballesteros REASON FOR ADMISSION: 88 years old female with past medical history of diabetes mellitus type 2 , hypertension, hyperlipidemia, lumbar stenosis, gastritis, chronic constipation , presented with acute onset of nausea and associated abdominal discomfort. Patient was at [facility] when she began to feel ill. She was brought in by EMS for further evaluation. Patient denied chest pain or shortness of breath. No other complaints. Patient reported having normal bowel movement. She denied rectal bleeding. Upon evaluation blood pressure was severely elevated 202/75 , patient had low- grade fever. Laboratory work-up revealed no leukocytosis, hemoglobin 11.6, hematocrit 36.2. BUN 18 ,creatinine 0.9. Glucose 221. Stable LFT. Lipase 70. Troponin negative. Albumin 3.5. Urinalysis revealed +2 protein, +3 leukocyte esterase, 20-30 RBC, urine pyuria and moderate bacteria. Urine toxicology screen was negative. CT of the abdomen and pelvis demonstrated bilateral mild hydronephrosis with unclear etiology , given lack of evidence of downstream obstructive pathology. No definite acute abnormality of the GI tract. Colonic diverticulosis without evidence of diverticulitis. Cholelithiasis. Mild cardiomegaly. 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 Degenerative lumbosacral spondylosis. Patient was admitted for further management. CONSULTANTS: GI specialist Dr. Fernandez dining room cashier Dr. Badillo control systems specialist/oncologist Dr. Somers seasonal greenery bundler Dr. Bowen urologist Dr. Tidwell [facility] COURSE: Patient admitted to medical surgical floor. Patient initially kept n.p.o. Antiemetic provided as needed. IV and oral hydration encouraged. GI prophylaxis provided. Patient started on clear liquid diet and was advanced as tolerated. Pain management was addressed. Bowel regimen instituted. Patient started on empiric antibiotic for probable UTI. Urine culture revealed E. coli. Patient need to continue with oral nitrofurantoin and facility to complete the course. Urologist seen and evaluated patient. CT scan of the abdomen and pelvis, as mentioned above, revealed mild bilateral hydronephrosis and no evidence of obstructing stone, mass or other issues. Physical exam revealed no significant abdominal discomfort or tenderness. Abdominal pain and nausea probably were secondary to urinary tract infection, which was treated with antibiotic. Per urologist, minimal bilateral hydronephrosis demonstrated on the CT scan, was of no clinical consequence. There was no evidence of obstruction, stone or other concern. Creatinine within normal range. Renal parameters and electrolytes were closely monitored, and remained stable. Urologist recommended just close surveillance at this time. Antihypertensive regimen was optimized by dining room cashier and included calcium channel fernando and hydralazine. Clonidine was on board as needed. Blood pressure stabilized. Patient needs close monitoring of blood pressure at the facility with further optimization as needed. Sales And Leasing Agent followed. Hemoglobin A1c 7.2. Blood sugar was managed with metformin and sliding scale of insulin. Continue blood sugar management at the facility. Lot Worker seen and evaluated patient. Hemoglobin and hematocrit were closely monitored with goal to keep hemoglobin above 7. Anemia work-up revealed evidence of anemia of iron deficiency . No evidence of hemolysis. Patient started on oral ferrous sulfate. Prior to discharge hemoglobin 11.5 , hematocrit 25.5. Patient clinically stabilized and was ready for transfer back to long-term facility for continuation of care. FINAL DIAGNOSES: Abdominal pain, likely due to UTI UTI with E coli and hematuria Hypertension [id number]/hypertensive urgency Dehydration Diabetes mellitus type 2 Mild bilateral hydronephrosis Anemia of iron deficiency DISCHARGE MEDICATIONS: See Medication Reconciliation list. DISCHARGE INSTRUCTIONS: Patient was discharged to the long-term facility. Follow up with medical doctor at the facility. I have been assigned to dictate discharge summary for this account. I was not involved in the patient's management. Yamilka Reynoso NP Sep 30, 2018 07:31
== END 2018-09-27 18:45 | disposition home or self-care (01) | DRG 690 ==
LOC: EDBD 11:08 → EMR 11:39 → 4E 13:04 → EDBEDREQ 14:17 → 2E 16:18 → 4E 09-26 11:52
DX: N39.0 Urinary tract infection, site not specified (principal); D50.9 Iron deficiency anemia, unspecified; R31.9 Hematuria, unspecified; N28.1 Cyst of kidney, acquired; E86.0 Dehydration; E11.65 Type 2 diabetes mellitus with hyperglycemia; B96.20 Unspecified Escherichia coli [E. coli] as the cause of diseases classified elsewhere; I16.0 Hypertensive urgency; N13.30 Unspecified hydronephrosis; E78.5 Hyperlipidemia, unspecified; M48.061 Spinal stenosis, lumbar region without neurogenic claudication; D17.71 Benign lipomatous neoplasm of kidney; K57.90 Diverticulosis of intestine, part unspecified, without perforation or abscess without bleeding; K80.20 Calculus of gallbladder without cholecystitis without obstruction; Z79.84 Long term (current) use of oral hypoglycemic drugs; K29.70 Gastritis, unspecified, without bleeding; M47.897 Other spondylosis, lumbosacral region
CPT/HCPCS: 36415; 74177; 80048; 80053; 80061; 80307; 81003; 82607; 82728; 82746; 82962; 82977; 83036; 83540; 83550; 83690; 83735; 83880; 84100; 84443; 84484; 84550; 85025; 87086; 87181; 96365; 99285; J1815; J2405